=== PATIENT | female | born 1950 | race Caucasian/White ===

== ENCOUNTER 2016-08-12 10:34 | Observation (INO) | payer MEDICARE ==
[2016-08-12] MEDS ORDERED: ASPIRIN 81 MG CHEW PO STA (11:02)
--- NOTE | 2016-08-12 11:02 | ED ---
General Adult HPI - General Chief complaint: Shortness of Breath Stated complaint: chest pain Time Seen by Provider: 08/12/16 10:35 Source: patient, RN notes reviewed Mode of arrival: ambulatory Limitations: no limitations - History of Present Illness Initial comments: This is a 66-year-old female was a past medical history significant for high cholesterol. Patient states approximately one hour ago she started having chest pain center of her chest in the center of her chest and it radiated around to the back. Patient states she became very nauseated when she had the pain. Patient denies any diaphoresis. Patient denies any shortness of breath or difficulty breathing. Patient states it lasted for about half an hour and in route to the hospital the pain went away completely. Patient states she remains chest pain-free. Patient denies any headache patient denies numbness weakness. Patient denies any abdominal pain patient denies nausea vomiting or diarrhea. Patient denies any recent fever chills or cough. Patient denies reproducible pain on palpation. Patient states she has not had this kind of pain in the past. - Related Data Home Medications Medication Instructions Recorded Confirmed Aspirin 81 mg PO DAILY 08/12/16 08/12/16 Atorvastatin Calcium [Lipitor] 10 mg PO DAILY 08/12/16 08/12/16 Levothyroxine Sodium [Synthroid] 100 mcg PO DAILY 08/12/16 08/12/16 Allergies Allergy/AdvReac Type Severity Reaction Status Date / Time No Known Allergies Allergy Verified 08/12/16 12:43 Review of Systems ROS Statement: Those systems with pertinent positive or pertinent negative responses have been documented in the HPI. ROS Other: All systems not noted in ROS Statement are negative. Past Medical History Past Medical History: Cancer, Hyperlipidemia, Thyroid Disorder Additional Past Medical History / Comment(s): Thyroid cancer History of Any Multi-Drug Resistant Organisms: None Reported Past Surgical History: Hysterectomy Additional Past Surgical History / Comment(s): thyroidectomy Past Psychological History: No Psychological Hx Reported Smoking Status: Former smoker Past Alcohol Use History: Rare Past Drug Use History: None Reported General Exam - General Exam Comments Initial Comments: GENERAL: Patient is well-developed and well-nourished. Patient is nontoxic and well- hydrated and is in no acute distress. ENT: Neck is soft and supple. No significant lymphadenopathy is noted. Oropharynx is clear. Moist mucous membranes. Neck has full range of motion without eliciting any pain. EYES: The sclera were anicteric and conjunctiva were pink and moist. Extraocular movements were intact and pupils were equal round and reactive to light. Eyelids were unremarkable. PULMONARY: Unlabored respirations. Good breath sounds bilaterally. No audible rales rhonchi or wheezing was noted. CARDIOVASCULAR: There is a regular rate and rhythm without any murmurs gallops or rubs. ABDOMEN: Soft and nontender with normal bowel sounds. No palpable organomegaly was noted. There is no palpable pulsatile mass. SKIN: Skin is clear with no lesions or rashes and otherwise unremarkable. NEUROLOGIC: Patient is alert and oriented x3. Cranial nerves II through XII are grossly intact. Motor and sensory are also intact. Normal speech, volume and content. Symmetrical smile. MUSCULOSKELETAL: Normal extremities with adequate strength and full range of motion. LYMPHATICS: No significant lymphadenopathy is noted PSYCHIATRIC: Normal psychiatric evaluation. Normal interpersonal interactions appears functionally intact in deals appropriately with others. Mild anxiety Limitations: no limitations Course Vital Signs 08/12/16 08/12/16 08/12/16 10:36 11:13 12:45 Temperature 98.2 F 97.8 F Pulse Rate 92 85 87 Respiratory 18 16 16 Rate Blood Pressure 161/74 164/74 137/69 O2 Sat by Pulse 98 99 92 L Oximetry Medical Decision Making - Medical Decision Making EKG shows normal sinus rhythm at 70 bpm FL interval is 122 Kathy is 76 QTC is 442 QTC is 388. Patient's EKG shows no ST segment elevation or depression or T- wave abdomen is noted. Patient was without symptoms in the emergency department however because of the significance of her symptoms as well as her risk factors the patient appeared to be having unstable angina so I put the patient on heparin. I spoke to Dr. Urmila Kearns agreed to admit the patient I consult to cardiology and continue to heparin Nitropaste and aspirin on the floor. - Lab Data Result diagrams: 08/12/16 10:55 08/12/16 10:55 Lab Results 08/12/16 08/12/16 08/12/16 Range/Units 10:55 10:55 10:55 WBC 7.0 (3.8-10.6) k/uL RBC 4.92 (3.80-5.40) m/uL Hgb 14.2 (11.4-16.0) gm/dL Hct 41.8 (34.0-46.0) % MCV 84.9 (80.0-100.0) fL MCH 28.9 (25.0-35.0) pg MCHC 34.1 (31.0-37.0) g/dL RDW 13.1 (11.5-15.5) % Plt Count 241 (150-450) k/uL Neutrophils % 59 % Lymphocytes % 30 % Monocytes % 5 % Eosinophils % 2 % Basophils % 1 % Neutrophils # 4.1 (1.3-7.7) k/uL Lymphocytes # 2.1 (1.0-4.8) k/uL Monocytes # 0.4 (0-1.0) k/uL Eosinophils # 0.2 (0-0.7) k/uL Basophils # 0.1 (0-0.2) k/uL PT 10.7 (9.0-12.0) sec INR 1.1 (<1.1) APTT 23.1 (22.0-30.0) sec Sodium 142 (137-145) mmol/L Potassium 4.2 (3.5-5.1) mmol/L Chloride 107 (98-107) mmol/L Carbon Dioxide 26 (22-30) mmol/L Anion Gap 9 mmol/L BUN 17 (7-17) mg/dL Creatinine 0.84 (0.52-1.04) mg/dL Est GFR (MDRD) Af Amer >60 (>60 ml/min/1.73 sqM) Est GFR (MDRD) Non-Af >60 (>60 ml/min/1.73 sqM) Glucose 100 H (74-99) mg/dL Calcium 9.2 (8.4-10.2) mg/dL Magnesium 2.1 (1.6-2.3) mg/dL Total Bilirubin 0.8 (0.2-1.3) mg/dL AST 22 (14-36) U/L ALT 32 (9-52) U/L Alkaline Phosphatase 90 (38-126) U/L Total Creatine Kinase (30-135) U/L CK-MB (CK-2) (0.0-2.4) ng/mL CK-MB (CK-2) Rel Index Troponin I (0.000-0.034) ng/mL Total Protein 6.8 (6.3-8.2) g/dL Albumin 4.3 (3.5-5.0) g/dL 08/12/16 Range/Units 10:55 WBC (3.8-10.6) k/uL RBC (3.80-5.40) m/uL Hgb (11.4-16.0) gm/dL Hct (34.0-46.0) % MCV (80.0-100.0) fL MCH (25.0-35.0) pg MCHC (31.0-37.0) g/dL RDW (11.5-15.5) % Plt Count (150-450) k/uL Neutrophils % % Lymphocytes % % Monocytes % % Eosinophils % % Basophils % % Neutrophils # (1.3-7.7) k/uL Lymphocytes # (1.0-4.8) k/uL Monocytes # (0-1.0) k/uL Eosinophils # (0-0.7) k/uL Basophils # (0-0.2) k/uL PT (9.0-12.0) sec INR (<1.1) APTT (22.0-30.0) sec Sodium (137-145) mmol/L Potassium (3.5-5.1) mmol/L Chloride (98-107) mmol/L Carbon Dioxide (22-30) mmol/L Anion Gap mmol/L BUN (7-17) mg/dL Creatinine (0.52-1.04) mg/dL Est GFR (MDRD) Af Amer (>60 ml/min/1.73 sqM) Est GFR (MDRD) Non-Af (>60 ml/min/1.73 sqM) Glucose (74-99) mg/dL Calcium (8.4-10.2) mg/dL Magnesium (1.6-2.3) mg/dL Total Bilirubin (0.2-1.3) mg/dL AST (14-36) U/L ALT (9-52) U/L Alkaline Phosphatase (38-126) U/L Total Creatine Kinase 107 (30-135) U/L CK-MB (CK-2) 0.9 (0.0-2.4) ng/mL CK-MB (CK-2) Rel Index 0.8 Troponin I <0.012 (0.000-0.034) ng/mL Total Protein (6.3-8.2) g/dL Albumin (3.5-5.0) g/dL Critical Care Time Critical Care Time: Yes Total Critical Care Time: 35 Disposition Clinical Impression: Unstable angina Disposition: ADMITTED IP TO THIS HOSP Referrals: Luis Camarena MD [Primary Care Provider] - 1-2 days Time of Disposition: 12:53
[2016-08-12] MEDS ORDERED: NITROGLYCERIN OINT 1 INCH/GM PACKET TOPICAL STA (11:03)
[2016-08-12 11:09] LABS: Basophils # (A) 0.1 k/uL (0-0.2); Basophils % (A) 1 %; CH 28.9; CHCM 34.2; Eosinophils # (A) 0.2 k/uL (0-0.7); Eosinophils % (A) 2 %; HCT 41.8 % (34.0-46.0); HDW 2.46; HGB 14.2 gm/dL (11.4-16.0); Luc # (Auto) 0.18; Luc % (Auto) 3; Lymphocytes # (A) 2.1 k/uL (1.0-4.8); Lymphocytes % (A) 30 %; MCH 28.9 pg (25.0-35.0); MCHC 34.1 g/dL (31.0-37.0); MCV 84.9 fL (80.0-100.0); Mean Platelet Volume 7.1; Monocytes # (A) 0.4 k/uL (0-1.0); Monocytes % (A) 5 %; Neutrophils # (A) 4.1 k/uL (1.3-7.7); Neutrophils % (A) 59 %; RBC 4.92 m/uL (3.80-5.40); RDW 13.1 % (11.5-15.5); WBC (Perox) 6.18
--- NOTE | 2016-08-12 11:11 | XR ---
EXAMINATION TYPE: XR chest 2V DATE OF EXAM: 08/12/2016 11:06 AM COMPARISON: None HISTORY: 66-year-old female with chest pain TECHNIQUE: Frontal and lateral views FINDINGS: The cardiomediastinal silhouette, aorta, and pulmonary vasculature are within normal limits. Strandy atelectasis at the left base. Otherwise, lungs and pleural spaces are clear. IMPRESSION: No acute cardiopulmonary process.
[2016-08-12 11:18] LABS: INR 1.1 (<1.1); Partial Thromboplastin Time 23.1 sec (22.0-30.0); Prothrombin Time 10.7 sec (9.0-12.0)
[2016-08-12 11:51] LABS: Creatine Kinase 107 U/L (30-135)
[2016-08-12 12:04] LABS: Creatine Kinase MB 0.9 ng/mL (0.0-2.4); Troponin I <0.012 ng/mL (0.000-0.034)
[2016-08-12 12:25] LABS: ALT 32 U/L (9-52); AST 22 U/L (14-36); Alkaline Phosphatase 90 U/L (38-126); Anion Gap 9 mmol/L; Blood Urea Nitrogen 17 mg/dL (7-17); Calcium 9.2 mg/dL (8.4-10.2); Carbon Dioxide 26 mmol/L (22-30); Chloride 107 mmol/L (98-107); Glucose 100 mg/dL (74-99); Magnesium 2.1 mg/dL (1.6-2.3); Non-African American GFR(MDRD) >60 (>60 ml/min/1.73 sqM); Potassium 4.2 mmol/L (3.5-5.1); Sodium 142 mmol/L (137-145); Total Bilirubin 0.8 mg/dL (0.2-1.3); Total Protein 6.8 g/dL (6.3-8.2)
[2016-08-12] MEDS ORDERED: HEPARIN SODIUM,PORCINE 5,000 UNIT/ML 1 ML VIAL IV ONE (12:31)
[2016-08-12] MEDS ORDERED: HEPARIN SODIUM,PORCINE/D5W PMX 25,000 UNIT in DEXTROSE/WATER 1 500ML.BAG IV SCH (12:45)
[2016-08-12] MEDS ORDERED: NITROGLYCERIN SL TABS 0.4 MG TAB SUBLINGUAL PRN (12:53)
[2016-08-12 18:01] LABS: Creatine Kinase 134 U/L (30-135)
[2016-08-12 18:14] LABS: Creatine Kinase MB 1.5 ng/mL (0.0-2.4); Troponin I <0.012 ng/mL (0.000-0.034)
[2016-08-12] MEDS: NITROGLYCERIN OINT 1 INCH/GM PACKET TOPICAL SCH (18:28)
[2016-08-12] MEDS ORDERED: ACETAMINOPHEN TAB 325 MG TAB PO PRN (19:25)
[2016-08-12 23:47] LABS: Creatine Kinase 69 U/L (30-135)
[2016-08-13] LABS: Creatine Kinase MB 0.6 ng/mL (0.0-2.4); Troponin I <0.012 ng/mL (0.000-0.034)
[2016-08-13] MEDS: NITROGLYCERIN OINT 1 INCH/GM PACKET TOPICAL SCH ×2 (04:01→06:50)
[2016-08-13] MEDS: LEVOTHYROXINE 100 MCG TAB PO SCH (06:50)
[2016-08-13 07:22] LABS: Cholesterol 191 mg/dL (<200); HDL Cholesterol 57 mg/dL (40-60); Triglycerides 110 mg/dL (<150)
[2016-08-13 08:15] VITALS: RESP 16
[2016-08-13] MEDS: ASPIRIN 325 MG TAB PO SCH (08:35)
[2016-08-13] MEDS ORDERED: ATORVASTATIN 20 MG TAB PO SCH (09:00)
[2016-08-13] MEDS ORDERED: ATORVASTATIN 10 MG TAB PO ONE (09:00)
[2016-08-13] MEDS ORDERED: ASPIRIN 81 MG CHEW PO SCH (09:00)
[2016-08-13] MEDS ORDERED: ATORVASTATIN 10 MG TAB PO SCH (09:00)
--- NOTE | 2016-08-13 09:14 | CONS ---
DATE OF CONSULTATION: Simran Masters is 66-year-old female who started experiencing midsternal chest discomfort that is quite severe and made her nauseous and sweaty and dizzy. The pain radiated to the left scapula. She was quite concerned as it did not let up and she came to the hospital. In the hospital her 12-lead ECG shows normal sinus rhythm with normal cardiac intervals, normal ST segments. Two serial EKGs are normal. Three sets of cardiac enzymes have been normal. She has been pain free here. REVIEW OF SYSTEMS: No fever, chills, rigors. No cough or expectoration. No nausea, vomiting, or diarrhea. No hematuria, dysuria. No strokes or seizure. No skin lesions. No musculoskeletal complaints. ALLERGIES: No known drug allergies. MEDICATIONS: Aspirin, atorvastatin and Synthroid, levothyroxine. Past medical history of dyslipidemia. On examination, her blood pressure is 109/55 mmHg, pulse rate is in the 70s. She is afebrile, 98.6 degrees Fahrenheit. Head and neck examination is normal. Heart sounds are normal. Lungs are clear to auscultation. Extremities are warm. No edema. She has no chest wall tenderness. Labs are reviewed. Cardiac enzymes are normal. Electrolytes are normal. Liver functions are normal. LDL is 112 while on atorvastatin 10 mg a day, HDL 57, total cholesterol 191, triglycerides 110. IMPRESSION: 1. Chest discomfort with radiation to the left scapular area associated with nausea and sweating and dizziness. Normal cardiac enzymes, normal ECG. No evidence for acute myocardial infarction. 2. History of dyslipidemia on atorvastatin. 3. Nonsmoker. SUGGEST: Exercise Cardiolite exercise stress echo tomorrow and if this is normal, she may go home and follow up as an outpatient. I would also increased dose of atorvastatin 20 mg p.o. daily so that her LDL is below 100. Continue aspirin and stop heparin. If her stress test is normal upper abdominal pathology suggest gallbladder disease should be investigated.
[2016-08-13 10:52] LABS: Amylase 47 U/L (30-110)
--- NOTE | 2016-08-13 12:23 | HP ---
DATE OF ADMISSION: CHIEF COMPLAINT: Left chest pain. HISTORY OF PRESENT ILLNESS: This is a 66-year-old female with past medical history significant for hyperlipidemia and thyroid cancer presents to the hospital with left chest pain. Patient denied any heavy lifting. Denied any recent trauma, but said that her right-sided of the chest is tender to touch and to certain movement and that it is radiating all the way to the left shoulder blade and to her back. The patient denied any nausea, vomiting. Denied any exertional dyspnea. Denied any fever or chills or recent upper respiratory infection. Patient said that she had acid reflux disease in the past but never had big trouble with it. Patient is compliant with her medication and doctor's follow-up. Patient is denying tobacco, alcohol or drug abuse. Denied any family history significant for coronary artery disease and currently is pain free this morning. In the emergency troponin negative, EKG normal. Patient was admitted for observation. REVIEW OF SYSTEMS: All 14 systems reviewed and negative except as above. ALLERGIES: No known drug allergies. MEDICATIONS: 1. Aspirin 81 mg daily. 2. Lipitor 10 mg daily. 3. Levothyroxine 100 mcg p.o. daily. PAST MEDICAL AND SURGICAL HISTORY: 1. Thyroid cancer age 28, status post thyroidectomy. 2. Hypothyroidism. 3. Hyperlipidemia. 4. Hysterectomy. SOCIAL HISTORY: The patient quit smoking a long time ago. Denied alcohol or drug abuse. PHYSICAL EXAMINATION: VITAL SIGNS: Reviewed and stable. GENERAL: At her stated age, no acute distress. HEENT: Atraumatic, normocephalic. PERRLA. NECK: Supple, no masses. No thyromegaly. LUNGS: Clear to auscultation bilaterally. HEART: Normal S1, S2. ABDOMEN: Soft, nontender. Bowel sounds positive in all four quadrants. EXTREMITIES: Lower extremity no edema. PSYCH: Alert and oriented x3. NEURO: Cranial nerves II through XII are intact. Normal deep tendon reflexes and sensation. No focal deficit on physical examination. IMAGING AND LABS: EKG showed normal findings. CBC normal. Chem-7 normal. PT, PTT, INR within normal limits. Liver function tests within normal limits. Albumin 4.3, protein within normal limit. Troponin is negative. Chest x-ray showed no acute process. ASSESSMENT AND PLAN: 1. Left-sided chest pain likely musculoskeletal in nature given the patient's age, comorbidities and Dr. Simpson evaluated the patient and recommended stress test in the morning. Patient is agreeable to the current treatment. Plan: We will keep on telemonitor, discontinue heparin drip, discontinue IV at this point and we will continue monitoring her vital signs closely, perform stress test in the morning and consider discharge after stress test as mentioned above. It is most likely musculoskeletal in nature and patient recommend to follow up with her primary care physician after discharge. 2. Hyperlipidemia. We will check on her lipid panel and increase dose from 10 to 20. 3. Hypothyroidism. We will continue with Synthroid. 4. Discharge planning in the morning based on clinical progress.
[2016-08-14] MEDS: LEVOTHYROXINE 100 MCG TAB PO SCH (06:33)
[2016-08-14] MEDS ORDERED: ATORVASTATIN 20 MG TAB PO SCH (09:00)
[2016-08-14] MEDS: ASPIRIN 325 MG TAB PO SCH (10:18)
--- NOTE | 2016-08-14 11:42 | ECHOS ---
DATE OF SERVICE: 08/14/2016 AGE: 66Y SEX: F HT: 62" WT: 167 lbs. Protocol Hermelindo: X Others: Stress Echo Stage: 3 Dur. of Exercise: 6:30 *Heart Rate Blood Pressure *Rest: 83 Rest: 134/72 * *Max. Achieved: 156 Maximum BP: 202/50 85% PMHR: 129 100% PMHR: 152 *METS: 7.6 INDICATIONS: Chest pain. MEDICATIONS: Aspirin, Lipitor, levothyroxine. Simran Masters is a 66-year-old female who came in with epigastric and chest discomfort and cardiac enzymes were normal. She underwent an exercise stress echo. Baseline heart rate 83 beats a minute. Baseline blood pressure 134/72 mmHg. Patient exercised on a Hermelindo protocol for 6 minutes 30 seconds reaching a peak heart rate of 156 beats a minute, mildly hypertensive response to exercise. Peak blood pressure 202/50 mmHg. Baseline 12-lead ECG showed normal sinus rhythm with 0.[address] depression inferolaterally. No symptoms were noted on the stress test. There was [address] depression inferolaterally; however, this was in the setting of baseline ECG abnormalities. The baseline 2-D echo images showed normal LV systolic function without any segmental wall motion abnormalities. At peak exercise there was excellent augmentation of overall LV contractility without development of any wall motion abnormalities. At recovery, regional global LV systolic function remain normal. IMPRESSION: Normal stress echo without evidence for ischemia. Patient has baseline 0.[address] depression abnormalities on ECG. SUGGEST: Work-up for upper abdominal pathology/gallbladder disease.
[2016-08-14 11:55] VITALS: BP 139/60; PULSE 95; TEMP 99.2
--- NOTE | 2016-08-18 16:10 | P.DS ---
Providers Date of admission: 08/12/16 12:53 Expected date of discharge: 08/14/16 Attending physician: Marques Kearns Consults: 08/12/16 12:53 Consult Physician Urgent Consulting Provider: [facility] Consult Reason/Comments: Unstable angina Do you want consulting provider notified?: Yes Primary care physician: Luis Camarena [facility] Course: This is a 66-year-old female patient of Dr. Camarena with past history of hyperlipidemia, thyroid cancer. She presented with left-sided chest pain. She was placed in the observation unit and seen in consultation by Dr. Mcconnell. She underwent stress test that was negative and patient is been cleared for discharge home in stable condition. Discharge diagnoses: 1. Musculoskeletal chest pain 2. Hyperlipidemia 3. Hypothyroidism Impression and plan of care have been directed as dictated by the signing physician. Margot Altamirano nurse practitioner acting as scribe for signing physician. Patient Condition at Discharge: Good Plan - Discharge Summary Discharge Medication List Aspirin 81 mg PO DAILY 08/12/16 [History] Atorvastatin Calcium [Lipitor] 10 mg PO DAILY 08/12/16 [History] Levothyroxine Sodium [Synthroid] 100 mcg PO DAILY 08/12/16 [History] Follow up Appointment(s)/Referral(s): Jose Antonio Simpson MD [STAFF PHYSICIAN] - 2 Weeks (Left message at Dr. Simpson's office with patient's information to follow up with appointment.) Luis Camarena MD [Primary Care Provider] - 1-2 days Ambulatory/Diagnostic Orders: US abdomen limited [RAD.AMB] Location: Determined By Patient Patient Instructions/Handouts: Angina (GEN) Discharge Disposition: HOME SELF-CARE
== END 2016-08-14 12:58 | disposition home or self-care (01) ==
LOC: EC 10:34 → 3SUR 12:53 → 3OBS 17:38
PROVIDERS: ADMIT Internal Medicine; ATTEND Internal Medicine
DX: I20.0 Unstable angina (principal); E78.5 Hyperlipidemia, unspecified; F41.9 Anxiety disorder, unspecified; K21.9 Gastro-esophageal reflux disease without esophagitis; Z85.850 Personal history of malignant neoplasm of thyroid; Z79.82 Long term (current) use of aspirin; Z79.899 Other long term (current) drug therapy; Z87.891 Personal history of nicotine dependence; E89.0 Postprocedural hypothyroidism
CPT/HCPCS: 96376 ×2; 96365 ×2; 99291 ×2; 96366 ×2; 36415; 93005; 93017; 93350; 80061; 80053; 82150; 82550; 82553; 83690; 83735; 84484; 85025; 85610; 85730 ×2; 71020; G0378 ×3; J1644 ×2

== ENCOUNTER → 2016-08-23 | Outpatient (CLI) | payer MEDICARE, BC ==
--- NOTE | 2016-08-23 08:13 | US ---
EXAMINATION TYPE: US abdomen limited DATE OF EXAM: 08/23/2016 COMPARISON: NONE CLINICAL HISTORY: R10.84 Abdominal Pain, K81.9 Cholecystitis. Patient was in hospital for chest pain, no abnormalities found. EXAM MEASUREMENTS: Liver Length: 13.1 cm Gallbladder Wall: 0.2 cm CBD: 0.3 cm Right Kidney: 10.2 x 4.4 x 5.6 cm Pancreas: visualized portions wnl Liver: multiple thin-walled cysts throughout both lobes, largest measuring 2.9 x 2.4 x 3.4 cm, and a round hyperechoic lesion measuring 1.6 x 1.4 x 1.5 cm near dome. Gallbladder: No stones seen Evidence for sonographic Berrios's sign: No CBD: wnl Right Kidney: No hydronephrosis or masses seen IMPRESSION: Nonspecific 1.6 cm round hyperechoic lesion right hepatic lobe favors hemangioma, further investigation with multi phase contrast-enhanced liver protocol CT or MRI is advised. No gallstones or ultrasound evidence for acute cholecystitis.
== END | disposition home or self-care (01) ==
LOC: RADUSWWP 07:21
PROVIDERS: ATTEND Internal Medicine Geriatric Medicine
DX: K76.9 Liver disease, unspecified (principal); R10.84 Generalized abdominal pain
CPT/HCPCS: 76705

== ENCOUNTER → 2016-11-08 | Outpatient (CLI) | payer MEDICARE, BC ==
[2016-11-08 16:44] LABS: Blood Urea Nitrogen 17 mg/dL (7-17); Non-African American GFR(MDRD) >60 (>60 ml/min/1.73 sqM)
--- NOTE | 2016-11-08 17:29 | CT ---
EXAMINATION TYPE: CT abdomen wo/w con DATE OF EXAM: 11/08/2016 COMPARISON: NONE HISTORY: Abnormal US, no complaints at time of scan. CT DLP: 844.80 mGycm Automated exposure control for dose reduction was used. TECHNIQUE: Helical acquisition of images was performed from the lung bases through the top of iliac crest to include entire abdomen. CONTRAST: Performed with Oral Contrast and without and with IV Contrast, patient injected with 100 mL of Omnipa que 300. FINDINGS: There is coarse linear density at the lung bases. There are numerous cysts in the liver that measure up to 3 cm. Bile ducts are not dilated. Gallbladder appears normal. There is a 2 cm area of low attenuation in the posterior right lobe of the liver with peripheral enha ncement on the delayed images consistent with hemangioma. The noncontrast images show no renal stone. Spleen appears normal. There is no sign of pancreatic mas s. There is no adrenal mass. Kidneys show satisfactory contrast opacification. There is no hydronephrosi s. Ureters are not dilated. There is no retroperitoneal adenopathy. I see no intestinal wall thickening. There are no dilated loops. There is no sign of ascites. IMPRESSION: BILATERAL PATCHY SCARRING AND ATELECTASIS AT THE LUNG BASES. NUMEROUS HEPATIC CYSTS. THERE IS A 2 CM AREA OF LOW ATTENUATION WITH SOME PERIPHERAL ENHANCEMENT ON T HE DELAYED IMAGES CONSISTENT WITH HEMANGIOMA POSTERIOR RIGHT LOBE OF THE LIVER.. NO CHANGE COMPARED T O ABDOMEN ULTRASOUND ON 08/23/2016.
== END | disposition home or self-care (01) ==
LOC: RADCTMAIN 15:58
PROVIDERS: ATTEND Internal Medicine Geriatric Medicine
DX: K76.89 Other specified diseases of liver (principal)
CPT/HCPCS: 82565; 84520; 74170; 36415; Q9967

== ENCOUNTER → 2018-02-13 | Outpatient (CLI) | payer MEDICARE ==
[2018-02-13 11:33] LABS: Basophils # (A) 0.1 k/uL (0-0.2); Basophils % (A) 1 %; Eosinophils # (A) 0.2 k/uL (0-0.7); Eosinophils % (A) 2 %; HCT 44.3 % (34.0-46.0); HGB 14.5 gm/dL (11.4-16.0); Lymphocytes % (A) 29 %; MCH 28.4 pg (25.0-35.0); MCHC 32.8 g/dL (31.0-37.0); MCV 86.7 fL (80.0-100.0); Monocytes # (A) 0.3 k/uL (0-1.0); Monocytes % (A) 4 %; Neutrophils # (A) 4.4 k/uL (1.3-7.7); Neutrophils % (A) 63 %; Platelet Count 242 k/uL (150-450); RBC 5.11 m/uL (3.80-5.40); RDW 13.3 % (11.5-15.5); WBC 7.1 k/uL (3.8-10.6)
[2018-02-13 11:45] LABS: Potassium 4.6 mmol/L (3.5-5.1)
== END ==
LOC: LABPAT 10:53
PROVIDERS: ATTEND Orthopaedic Surgery
DX: Z01.818 Encounter for other preprocedural examination (principal); Z01.812 Encounter for preprocedural laboratory examination; M75.41 Impingement syndrome of right shoulder
CPT/HCPCS: 36415; 80051; 85025; 93005

== ENCOUNTER → 2018-02-22 | Day surgery (SDC) | payer MEDICARE ==
[2018-02-18 14:32] VITALS: BMI 30.5
--- NOTE | 2018-02-21 09:49 | HP ---
HISTORY AND PHYSICAL CHIEF COMPLAINT: Right shoulder pain. HISTORY OF PRESENT ILLNESS: The patient is a 67-year-old, right-hand dominant, retired female who presents with right shoulder pain after a fall in December of 2017. She fell down her stairs. She is having pain with attempted overhead use and at night ever since. She has a difficult time raising her arm over her head. She denies previous significant problems. PAST MEDICAL HISTORY: Significant for hypothyroidism and hypercholesterolemia. CURRENT MEDICATIONS: 1. Atorvastatin. 2. Ibuprofen. 3. Synthroid. ALLERGIES: She denies drug allergies. SURGICAL HISTORY: Significant for her partial thyroidectomy and hysterectomy. FAMILY HISTORY: Significant for cancer and lung disease. SOCIAL HISTORY: Negative for current tobacco or alcohol use. REVIEW OF SYSTEMS: Sixteen-point review of systems otherwise reviewed and is noncontributory. PHYSICAL EXAMINATION: On examination, the patient is approximately 5 feet 2 inches, 173 pounds of mesomorphic habitus. HEENT exam is nonfocal. Neck is supple. On examination of her right shoulder, she is tender about the anterior subacromial space. She has mild subacromial crepitus. Active range of motion forward elevation 90 degrees, external rotation with arm to side 55 degrees, internal rotation to L2. Passively I am able to forward elevate her to 155 degrees. Motor strength is 4+ or 5 for external rotation with arm at side, 4/5 for abduction. Impingement test, Neer test and Speed test are positive. Her distal neurovascular exam otherwise appears intact in the right upper extremity. MRI report right shoulder shows evidence of a retracted rotator cuff tear without significant muscular atrophy. IMPRESSION: Right acute rotator cuff tear-symptomatic. RECOMMENDATIONS: I talked to the patient at length regarding her condition and treatment options. At this point, she is quite symptomatic and limited because of pain and weakness. After thorough discussion, she opts to proceed with surgery. We will plan to proceed with right shoulder arthroscopic subacromial decompression with probable rotator cuff repair and possible biceps tenotomy. Risks and benefits were discussed at length in layman's terms. MMODL / IJN: [id number] /
[~2018-02-22] MED LIST: DEXAMETHASONE SOD PHOSPHATE 10 MG/ML 1 ML VIAL IV ONE; EPINEPHrine (PF) 1 ML in SODIUM CHLORIDE 0.9% IRRIGATIO 3,000 ML IRRIGATION ONE; HYDROmorphone 0.5 MG/0.5 ML SYRINGE IVP PRN; KETAMINE 10 MG/ML 20 ML VIAL ONE; LACTATED RINGERS 1,000 ML IV ONE; LACTATED RINGERS 1,000 ML IV SCH; LIDOCAINE 1% 20 ML VIAL (10MG/ML) FOR IV START INTRADERMA ONE; LIDOCAINE 1% INJ 10MG/ML (20 ML MDV) ONE; MIDAZOLAM 2 MG/2 ML VIAL IV ONE; MIDAZOLAM 2 MG/2 ML VIAL ONE; MORPHINE SULFATE 2 MG/ML SYRINGE IV PRN; ONDANSETRON 4 MG/2 ML VIAL IVP ONE; ONDANSETRON 4 MG/2 ML VIAL IVP PRN; PHENYLEPHRINE-0.9% NACL SYG 1 MG/10 ML SYRINGE ONE; PROPOFOL 10 MG/ML 20 ML VIAL IV ONE; ROCURONIUM BROMIDE 10 MG/ML 10 ML VIAL IV ONE; ROPIVACAINE 5 MG/ML 30 ML VIAL ONE; ceFAZolin IN SWFI 2 GM/20 ML SYRINGE IVP ONE
--- NOTE | 2018-02-22 07:34 | P.ONQ ---
Anesthesiology Proc Note - PNB - Peripheral Nerve Block Performed Right Interscalene Time Out Performed: Yes Procedure Start Time: : Procedure Stop Time: : Indication: Acute Post-Operative Pain, Analgesia, Requested by physician Sedation Type: Sedate with meaningful contact maintained Preparation: Sterile Prep Position: Supine Catheter: None Needle Types: On-Q Needle Size: 50mm (2") Needle Gauge: 20 Technique: Ultrasound Injectate: 0.5% Ropivacaine (see comment for volume) (20cc) Blood Aspirated: No Pain Paresthesia on Injection Noted: No
--- NOTE | 2018-02-22 09:44 | P.OP ---
Date of Procedure: 02/22/18 Preoperative Diagnosis: Acute right rotator cuff tear Postoperative Diagnosis: Same in addition to high-grade partial-thickness tear long head of the biceps/ type II superior labral tear Procedure(s) Performed: Right shoulder arthroscopic subacromial decompression/rotator cuff repair/ biceps tenotomy/superior labral debridement Implants: Arthrex 4.75 mm swivel lock anchor 2, 5.5 mm swivel lock anchor 2. Anesthesia: kenzie BROWN Surgeon: Alberto Damon Assistant Refinery Operator #1: Arnol Saldaña Estimated Blood Loss (ml): 10 Pathology: none sent Condition: stable Disposition: PACU Indications for Procedure: The patient's a 67-year-old female who presents with progressive right shoulder pain and weakness after a fall about a month ago. Prior that she didn't have any problems. Clinically and by MRI she is noted of evidence of a large acute rotator cuff tear. A discussion of the risks and benefits of operative intervention versus continued conservative measures was made with the patient. She opted to proceed with surgery. Operative risks to include infection, neurovascular injury, development of blood clots, possible tendon rerupture, possible postoperative stiffness, and possible need for subsequent procedures was discussed. Informed consent was obtained. Operative Findings: As below Description of Procedure: The patient was brought to the operating room, and after induction of general anesthesia was placed in a beachchair position. A preoperative interscalene block was placed for postoperative analgesia. I examined the right shoulder. There was no gross block to passive motion or gross glenohumeral instability. The right upper extremity was prepped and draped in normal fashion. The bony outlines the acromion, distal clavicle, and coracoid process were outlined with a skin marker. The glenohumeral joint was inflated with 50 mL of saline utilizing a spinal needle from posterior approach. A posterior portal was made through a 5 mm skin incision 1 cm medial and inferior to the posterior lateral border time. A blunt trocar was used to easily into the joint. Diagnostic arthroscopy was performed. An anterior portal was made just lateral to the coracoid process entering the joint above the subscapularis tendon. The subscapularis tendon appeared to be intact. Anterior labrum was intact. The inferior recess was inspected. The posterior labrum was intact. There was a high-grade partial-thickness tear of the long head of the biceps involving interarticular portion. Was elected to proceed with release at this point. This was released from the superior labrum with electrocautery along with 2 to retract to the bicipital groove. A type II tear involving the superior labrum was noted as well this was debrided back to a stable base with a motorized shaver. On inspection the rotator cuff, a 5 cm tear involving the supraspinatus and supraspinatus tendons noted with retraction almost to the glenoid. A lateral portals made 2 centimeters inferior to the anterior lateral border of the acromion. The rotator cuff was then mobilized with a traction suture. This was then easily brought back to the greater tuberosity. The soft tissue on the undersurface of the acromion was debrided with a motorized shaver and electrocautery clearly defining the anterior medial and lateral borders as well as the distal clavicle. An anterior inferior acromioplasty was performed with a motorized meena starting anterolateral, then extending this posteriorly, then extending this medially. I converted to a flat acromion and this was verified in the posterior and lateral viewing portals. The greater tuberosity was lightly decorticating with a shaver down to a bleeding bony surface. An accessory superior lateral portals made just off the lateral edge of the acromion for anchor placement. 2 anchors were then placed just off the articular surface with the appropriate starting awl. 4.75 mm anchors preloaded with #2 fiber tape were placed. Good purchase was obtained. These fiber tapes were then passed the rotator cuff with a scorpion suture passer. A lateral row was created crisscrossing these tapes. 5.5 mm swivel lock anchors 2 were placed laterally. Good purchase was obtained. Final arthroscopic view showed adequate compression at the footprint. The arthroscope was then removed. The portals were closed with simple 3-0 nylon sutures. A sterile dressing was applied in addition to an abductor brace. The patient was then awoken from general anesthesia and transferred to recovery room in good condition. Blood loss was estimated at 10 mL. No complications were incurred. Sponge and needle counts were correct in the case.
[2018-02-22 09:46] VITALS: TEMP 97
[2018-02-22 10:33] VITALS: PULSE 67
[2018-02-22 10:53] VITALS: BP 112/67; RESP 16
== END | disposition home or self-care (01) ==
LOC: OR 06:00
PROVIDERS: ATTEND Orthopaedic Surgery
DX: S46.011A Strain of muscle(s) and tendon(s) of the rotator cuff of right shoulder, initial encounter (principal); S46.111A Strain of muscle, fascia and tendon of long head of biceps, right arm, initial encounter; S43.491A Other sprain of right shoulder joint, initial encounter; W10.9XXA Fall (on) (from) unspecified stairs and steps, initial encounter; M24.811 Other specific joint derangements of right shoulder, not elsewhere classified; E89.0 Postprocedural hypothyroidism; E78.00 Pure hypercholesterolemia, unspecified; E78.5 Hyperlipidemia, unspecified; M65.30 Trigger finger, unspecified finger; D50.9 Iron deficiency anemia, unspecified; M81.0 Age-related osteoporosis without current pathological fracture; I73.00 Raynaud's syndrome without gangrene; M54.5 Low back pain; M10.9 Gout, unspecified; M16.10 Unilateral primary osteoarthritis, unspecified hip; G25.81 Restless legs syndrome; R00.2 Palpitations; Z85.850 Personal history of malignant neoplasm of thyroid; Z85.820 Personal history of malignant melanoma of skin; Z87.891 Personal history of nicotine dependence; Z79.82 Long term (current) use of aspirin; Z79.890 Hormone replacement therapy; Z79.899 Other long term (current) drug therapy; Z79.1 Long term (current) use of non-steroidal anti-inflammatories (NSAID); Z88.6 Allergy status to analgesic agent; Z88.5 Allergy status to narcotic agent; Z90.710 Acquired absence of both cervix and uterus
CPT/HCPCS: 64415; 29827; 29826; C1713 ×2; C1894; J2250; J1100; J2405; J0171; J2001; J2795; J2370; J2704; J0690

== ENCOUNTER → 2018-09-03 | Outpatient (CLI) | payer MEDICARE ==
[2018-09-04 01:16] LABS: Thyroglobulin <0.20 ng/mL (1.60-59.90)
== END | disposition home or self-care (01) ==
LOC: LABWHC1 14:42
PROVIDERS: ATTEND Internal Medicine Endocrinology, Diabetes & Metabolism
DX: C73 Malignant neoplasm of thyroid gland (principal)
CPT/HCPCS: 36415; 84432; 84443; 86800

== ENCOUNTER → 2019-03-13 | Outpatient (CLI) | payer MEDICARE | END | disposition home or self-care (01) | LOC: LABWHC1 10:05 | PROVIDERS: ATTEND Internal Medicine Endocrinology, Diabetes & Metabolism | DX: C73 Malignant neoplasm of thyroid gland (principal) | CPT/HCPCS: 36415; 84432; 84443; 86800 ==

== ENCOUNTER → 2019-03-31 | Outpatient (CLI) | payer MEDICARE ==
--- NOTE | 2019-03-31 13:53 | US ---
EXAMINATION TYPE: US thyroid st tissue head/neck DATE OF EXAM: 03/31/2019 COMPARISON: NONE CLINICAL HISTORY: C73 MALIGNANT NEOPLASM OF THYROID GLAND. Thyroidectomy 40 years ago, patient on thy roid meds GLAND SIZE: Right Lobe: surgically absent Left Lobe: surgically absent Isthmus Thickness: surgically absent Bilateral neck scanned, no evidence of lymphadenopathy. IMPRESSION: Status post thyroidectomy. No local adenopathy or focal nodule.
== END | disposition home or self-care (01) ==
LOC: RADUSWWP 13:27
PROVIDERS: ATTEND Internal Medicine Endocrinology, Diabetes & Metabolism
DX: E89.0 Postprocedural hypothyroidism (principal)
CPT/HCPCS: 76536

== ENCOUNTER → 2019-09-12 | Outpatient (CLI) | payer MEDICARE ==
--- NOTE | 2019-09-12 15:34 | CT ---
EXAMINATION TYPE: CT angio chest DATE OF EXAM: 09/12/2019 COMPARISON: None HISTORY: Difficulty breathing CT DLP: 501 mGycm CONTRAST: CT chest with contrast and 3D reconstruction with MIP imaging is performed with IV Contrast, patient injected with 100 mL of Isovue 370. Contrast-enhanced CT of the chest was performed through the course of the pulmonary arteries with dedrick g and mediastinal window settings submitted. 3D reconstruction with MIP imaging was also performed. PULMONARY ARTERIES: The pulmonary arteries and their major tributaries are patent. I do not see sammy dence for sizable filling defect to suggest pulmonary embolic process. LUNGS: The lungs are clear and free of infiltrate. No evidence for atelectasis. No pulmonary nodule or mass is detected. No pleural effusion. MEDIASTINUM: Thoracic aorta is of normal caliber,however, evaluation is limited given timing of the contrast bolus. If there is concern for thoracic aortic pathology consider CHRISTIAN. Correlate clinicall y . The heart is not enlarged. No evidence for mediastinal mass. No mediastinal lymph nodes greater than 1cm. HILAR STRUCTURES: No evidence for mass. No hilar lymph nodes greater than 1 cm. UPPER ABDOMEN: Multiple hepatic cysts noted. IMPRESSION: 1. No evidence for Pulmonary embolism at this time.
== END | disposition home or self-care (01) ==
LOC: RADCTMAIN 14:45
PROVIDERS: ATTEND Nurse Practitioner Family
DX: R06.02 Shortness of breath (principal)
CPT/HCPCS: 71275; Q9967

== ENCOUNTER 2020-02-24 06:00 | Emergency (ER) | payer MEDICARE ==
[2020-02-24 06:07] VITALS: RESP 18
[2020-02-24] MEDS ORDERED: SODIUM CHLORIDE 0.9% 500 ML 500 ML IV STA (06:12)
[2020-02-24] MEDS ORDERED: HYDROmorphone 0.5 MG/0.5 ML SYRINGE IVP STA (06:12)
[2020-02-24] MEDS ORDERED: SODIUM CHLORIDE 0.9% 1,000 ML IV STA (06:12)
[2020-02-24] MEDS ORDERED: ONDANSETRON 4 MG/2 ML VIAL IVP STA (06:12)
--- NOTE | 2020-02-24 06:24 | ED ---
Abdominal Pain HPI - General Chief Complaint: Abdominal Pain Stated Complaint: abd pain Time Seen by Provider: 02/24/20 06:08 Source: patient, RN notes reviewed Mode of arrival: ambulatory Limitations: no limitations - History of Present Illness Initial Comments: 69-year-old female presents emergency Department with chief complaint of left- sided abdominal pain. Patient states pain started around 2 AM and which this woke her up. Patient has severe pain to the left side of her abdomen, left flank region. She has no history kidney stones. She's had a prior hysterectomy no other abdominal surgeries. Patient denies chest pain, shortness breath, fev er, diarrhea, melena, hematochezia, hematuria or dysuria. Patient states nothing makes the pain feel better or worse. Patient's had severe nausea and vomiting. - Related Data Home Medications Medication Instructions Recorded Confirmed Aspirin 81 mg PO DAILY 08/12/16 02/24/20 Levothyroxine Sodium [Synthroid] 100 mcg PO DAILY 08/12/16 02/24/20 Acetaminophen [Tylenol Extra 500 - 1,000 mg PO Q4-6H PRN 02/18/18 02/24/20 Strength] Albuterol Inhaler [Ventolin Hfa 2 puff INHALATION RT-QID 02/24/20 02/24/20 Inhaler] Atorvastatin Calcium [Lipitor] 20 mg PO DAILY 02/24/20 02/24/20 Ergocalciferol (Vitamin D2) 50,000 unit PO Q30D 02/24/20 02/24/20 [Drisdol] Turmeric Root Extract [Turmeric] 500 mg PO DAILY 02/24/20 02/24/20 Previous Rx's Medication Instructions Recorded Ibuprofen [Motrin] 600 mg PO Q8HR PRN #20 tab 02/24/20 Ondansetron Odt [Zofran Odt] 4 mg PO Q8HR PRN #10 tab 02/24/20 Tamsulosin [Flomax] 0.4 mg PO DAILY #7 cap 02/24/20 Allergies Allergy/AdvReac Type Severity Reaction Status Date / Time meperidine [From Demerol] Allergy Nausea & Verified 02/24/20 07:19 Vomiting Review of Systems ROS Statement: Those systems with pertinent positive or pertinent negative responses have been documented in the HPI. ROS Other: All systems not noted in ROS Statement are negative. Past Medical History Past Medical History: Cancer, Chest Pain / Angina, Hyperlipidemia, Musculoskeletal Disorder, Thyroid Disorder Additional Past Medical History / Comment(s): Thyroid cancer. SL OA FINGER. RT SHOULDER ROTATOR CUFF TEAR. CP 2017, W/U NL. History of Any Multi-Drug Resistant Organisms: None Reported Past Surgical History: Breast Surgery, Hysterectomy, Orthopedic Surgery, Tonsillectomy Additional Past Surgical History / Comment(s): Thyroidectomy, RLL fracture with plates/screws. LT BREAST BIOPSY. Past Anesthesia/Blood Transfusion Reactions: Previous Problems w/ Anesthesia Additional Past Anesthesia/Blood Transfusion Reaction / Comment(s): WOKE DURING SURG, STOPPED BREATHING AFTER (BIOPSY LT BREAST). Past Psychological History: No Psychological Hx Reported Smoking Status: Former smoker Past Alcohol Use History: Rare Past Drug Use History: None Reported - Past Family History Mother Family Medical History: Cancer Brother(s) Family Medical History: Cancer General Exam Limitations: no limitations General appearance: alert, in no apparent distress, other (Patient actually having emesis, very uncomfortable) Head exam: Present: atraumatic, normocephalic, normal inspection Eye exam: Present: normal appearance, PERRL, EOMI. Absent: scleral icterus, conjunctival injection, periorbital swelling ENT exam: Present: normal exam, normal oropharynx, mucous membranes moist Neck exam: Present: normal inspection, full ROM. Absent: tenderness, meningismus, lymphadenopathy Respiratory exam: Present: normal lung sounds bilaterally. Absent: respiratory distress, wheezes, rales, rhonchi, stridor Cardiovascular Exam: Present: regular rate, normal rhythm, normal heart sounds. Absent: systolic murmur, diastolic murmur, rubs, gallop, clicks GI/Abdominal exam: Present: soft, tenderness (Moderate left-sided), normal bowel sounds. Absent: distended, guarding, rebound, rigid Back exam: Absent: CVA tenderness (R), CVA tenderness (L) Neurological exam: Present: alert, oriented X3 Skin exam: Present: warm, dry, intact, normal color. Absent: rash Course Vital Signs 02/24/20 02/24/20 06:04 07:16 Temperature 98.1 F Pulse Rate 62 75 Respiratory 18 18 Rate Blood Pressure 111/62 109/44 O2 Sat by Pulse 100 99 Oximetry - Reevaluation(s) Reevaluation #1: 02/24/20 07:32 Patient reevaluated, patient is resting comfortably, states pain has resolved. Patient stated on CT results 4 millimeter ureteral calculi Medical Decision Making - Medical Decision Making 69-year-old female presented for left flank pain patient CT shows evidence of 4 mm UVJ stone. Patient's pain is greatly improved she has no recurrent of emesis. She was hydrated, will be discharged with Flomax and Zofran Zofran and Tylenol with codeine patient will given provided follow-up with urology - Lab Data Result diagrams: 02/24/20 06:21 02/24/20 06:21 Lab Results 02/24/20 02/24/20 02/24/20 Range/Units 06:21 06:21 06:21 WBC 12.1 H (3.8-10.6) k/uL RBC 4.89 (3.80-5.40) m/uL Hgb 13.7 (11.4-16.0) gm/dL Hct 41.5 (34.0-46.0) % MCV 84.8 (80.0-100.0) fL MCH 27.9 (25.0-35.0) pg MCHC 33.0 (31.0-37.0) g/dL RDW 13.2 (11.5-15.5) % Plt Count 269 (150-450) k/uL MPV 7.5 Neutrophils % 79 % Lymphocytes % 16 % Monocytes % 3 % Eosinophils % 0 % Basophils % 0 % Neutrophils # 9.5 H (1.3-7.7) k/uL Lymphocytes # 2.0 (1.0-4.8) k/uL Monocytes # 0.4 (0-1.0) k/uL Eosinophils # 0.1 (0-0.7) k/uL Basophils # 0.1 (0-0.2) k/uL Sodium 138 (137-145) mmol/L Potassium 3.9 (3.5-5.1) mmol/L Chloride 107 (98-107) mmol/L Carbon Dioxide 26 (22-30) mmol/L Anion Gap 5 mmol/L BUN 17 (7-17) mg/dL Creatinine 0.78 (0.52-1.04) mg/dL Est GFR (CKD-EPI)AfAm 89 (>60 ml/min/1.73 sqM) Est GFR (CKD-EPI)NonAf 77 (>60 ml/min/1.73 sqM) Glucose 172 H (74-99) mg/dL Plasma Lactic Acid Adria 1.8 (0.7-2.0) mmol/L Calcium 9.0 (8.4-10.2) mg/dL Total Bilirubin 0.6 (0.2-1.3) mg/dL AST 20 (14-36) U/L ALT 17 (4-34) U/L Alkaline Phosphatase 97 (38-126) U/L Total Protein 6.3 (6.3-8.2) g/dL Albumin 3.9 (3.5-5.0) g/dL Amylase 38 (30-110) U/L Lipase 53 (23-300) U/L - EKG Data -: EKG Interpreted by Me EKG Comments: EKG performed at 6:15 sinus bradycardia rate of 53 CO 146/74 QT/QTC 470 441 Disposition Clinical Impression: Left ureteral calculus Disposition: HOME SELF-CARE Condition: Stable Instructions (If sedation given, give patient instructions): Kidney Stones (ED) Additional Instructions: Please return to the Emergency Department if symptoms worsen or any other concerns. Prescriptions: Tamsulosin [Flomax] 0.4 mg PO DAILY #7 cap Ibuprofen [Motrin] 600 mg PO Q8HR PRN #20 tab PRN Reason: Pain Ondansetron Odt [Zofran Odt] 4 mg PO Q8HR PRN #10 tab PRN Reason: Nausea Is patient prescribed a controlled substance at d/c from ED?: No Referrals: Luis Camarena MD [Primary Care Provider] - 1-2 days Julito Marshall MD [STAFF PHYSICIAN] - 1-2 days Time of Disposition: 07:34
[2020-02-24 06:38] LABS: Basophils # (A) 0.1 k/uL (0-0.2); Basophils % (A) 0 %; Eosinophils # (A) 0.1 k/uL (0-0.7); Eosinophils % (A) 0 %; HCT 41.5 % (34.0-46.0); HGB 13.7 gm/dL (11.4-16.0); Lymphocytes % (A) 16 %; MCH 27.9 pg (25.0-35.0); MCV 84.8 fL (80.0-100.0); Mean Platelet Volume 7.5; Monocytes # (A) 0.4 k/uL (0-1.0); Monocytes % (A) 3 %; Neutrophils # (A) 9.5 k/uL (1.3-7.7); Neutrophils % (A) 79 %; Platelet Count 269 k/uL (150-450); RBC 4.89 m/uL (3.80-5.40); RDW 13.2 % (11.5-15.5); WBC 12.1 k/uL (3.8-10.6)
[2020-02-24 06:46] LABS: Albumin 3.9 g/dL (3.5-5.0); Potassium 3.9 mmol/L (3.5-5.1); Total Bilirubin 0.6 mg/dL (0.2-1.3); Total Protein 6.3 g/dL (6.3-8.2)
--- NOTE | 2020-02-24 07:07 | CT ---
EXAMINATION TYPE: CT abdomen pelvis wo con DATE OF EXAM: 02/24/2020 HISTORY: Abd pain left-sided. CT DLP: 681.3 mGycm. Automated Exposure Control for Dose Reduction was Utilized. TECHNIQUE: CT scan of the abdomen and pelvis is performed without oral or IV contrast. COMPARISON: Prior CT November 08, 2016 FINDINGS: Within the limitations of a non-contrast study, the following observations are made. LUNG BASES: [id number] bibasilar linear scarring and/or atelectasis LIVER/GB: Scattered simple-appearing thin-walled cysts and subcentimeter lesions presumed benign thro ughout the liver are redemonstrated. PANCREAS: No significant abnormality is seen. SPLEEN: No significant abnormality is seen. ADRENALS: No significant abnormality is seen. KIDNEYS: There is a 4 mm calculus at left UVJ causing mild left-sided hydronephrosis on current study . No right-sided renal calculus or hydronephrosis. Poorly distended bladder. BOWEL: Sigmoid colonic diverticula are present without evidence for diverticulitis.. No suspicious sm all or large bowel dilatation. GENITAL ORGANS: Uterus surgically absent or markedly atrophic. LYMPH NODES: No greater than 1cm abdominal or pelvic lymph nodes are appreciated. OSSEOUS STRUCTURES: Spine is straightened on sagittal images. [id number] multilevel spurring an d disc space narrowing. OTHER: No significant additional abnormality is seen. IMPRESSION: There is 4 mm calculus at left UVJ causing mild left-sided hydronephrosis.
[2020-02-24] MEDS ORDERED: TAMSULOSIN 0.4 MG CAP.ER.24H PO STA (07:32)
[2020-02-24] MEDS ORDERED: ACET/COD 300 MG/30 MG STARTER PACK 6 TAB BTL PO STA (07:34)
[2020-02-24 08:00] LABS: Appearance,Urine Cloudy (Clear); Bilirubin,Urine Negative (Negative); Blood,Urine Large (Negative); Color,Urine Yellow; Glucose,Urine (UA) Negative (Negative); Ketones,Urine Trace (Negative); Leukocyte Esterase,Urine Small (Negative); Mucus,Urine Many /hpf; Nitrite,Urine Negative (Negative); PH, Urine 5.5 (5.0-8.0); Protein,Urine 1+ (Negative); RBC,Urine 164 /hpf (0-5); Specific Gravity,Urine 1.035 (1.001-1.035); Squamous Epithelial Cell,Urine 1 /hpf (0-4); Urobilinogen,Urine <2.0 mg/dL (<2.0); WBC,Urine 4 /hpf (0-5)
[2020-02-24 08:01] VITALS: BP 103/53; PULSE 85; TEMP 97.7
== END 2020-02-24 08:05 | disposition home or self-care (01) ==
LOC: EC 06:00
DX: N20.1 Calculus of ureter (principal); E07.9 Disorder of thyroid, unspecified; M19.049 Primary osteoarthritis, unspecified hand; I20.9 Angina pectoris, unspecified; E78.5 Hyperlipidemia, unspecified; Z79.899 Other long term (current) drug therapy; Z79.82 Long term (current) use of aspirin; Z79.890 Hormone replacement therapy; Z88.5 Allergy status to narcotic agent; Z87.891 Personal history of nicotine dependence; Z90.710 Acquired absence of both cervix and uterus; Z85.850 Personal history of malignant neoplasm of thyroid
CPT/HCPCS: 36415; 93005; 80053; 82150; 83605; 83690; 85025; 81001; 74176; 99284; 96374; 96375; 96361 ×3; J2405; J1170

== ENCOUNTER 2020-03-09 14:22 | Emergency (ER) | payer MEDICARE ==
[2020-03-09 14:27] VITALS: TEMP 99.1
[2020-03-09 14:42] VITALS: RESP 18
--- NOTE | 2020-03-09 14:44 | ED ---
SOB HPI - General Chief Complaint: Shortness of Breath Stated Complaint: Revisit,SOB,No taste Time Seen by Provider: 03/09/20 14:42 Source: patient Mode of arrival: ambulatory Limitations: no limitations - History of Present Illness Initial Comments: 69-year-old female presents emergency Department with a chief complaint of shortness of breath and loss of taste. Patient states her tested positive about one week ago and she has been around him. Patient states she has also been feeling weak and generalized fatigue for the past one week. Patient reports decreased appetite. Patient reports decreased appetite and intake of fluids. Patient states she has lost her sense of smell and taste and now does not want to eat much. Patient denies any cough but does report some dyspnea on exertion. States that she contacted her physics technician Dr. Chapman and spoke with the nurse who advised to come to the emergency department for evaluation and IV fluids. Patient states there is some chills but no fevers. Denies any nausea vomiting diarrhea. Denies any chest pain abdominal pain back pain. - Related Data Home Medications Medication Instructions Recorded Confirmed Aspirin 81 mg PO DAILY 08/12/16 03/09/20 Levothyroxine Sodium [Synthroid] 100 mcg PO DAILY 08/12/16 03/09/20 Acetaminophen [Tylenol Extra 500 - 1,000 mg PO Q4-6H PRN 02/18/18 03/09/20 Strength] Albuterol Inhaler [Ventolin Hfa 2 puff INHALATION RT-QID 02/24/20 03/09/20 Inhaler] Atorvastatin Calcium [Lipitor] 20 mg PO DAILY 02/24/20 03/09/20 Ergocalciferol (Vitamin D2) 50,000 unit PO Q30D 02/24/20 03/09/20 [Drisdol] Turmeric Root Extract [Turmeric] 500 mg PO DAILY 02/24/20 03/09/20 Ascorbic Acid [Vitamin C] 500 mg PO DAILY 03/09/20 03/09/20 Cholecalciferol [Vitamin D3 (25 1,000 unit PO DAILY 03/09/20 03/09/20 Mcg = 1000 Iu)] Previous Rx's Medication Instructions Recorded Ibuprofen [Motrin] 600 mg PO Q8HR PRN #20 tab 02/24/20 Ondansetron Odt [Zofran Odt] 4 mg PO Q8HR PRN #10 tab 02/24/20 Tamsulosin [Flomax] 0.4 mg PO DAILY #7 cap 02/24/20 Albuterol Sulfate [Ventolin HFA] 1 - 2 puff INHALATION Q6H PRN #1 03/09/20 inhaler predniSONE 20 mg PO DAILY #5 tab 03/09/20 Allergies Allergy/AdvReac Type Severity Reaction Status Date / Time No Known Allergies Allergy Verified 03/09/20 15:44 Review of Systems ROS Statement: Those systems with pertinent positive or pertinent negative responses have been documented in the HPI. ROS Other: All systems not noted in ROS Statement are negative. Past Medical History Past Medical History: Cancer, Chest Pain / Angina, Hyperlipidemia, Musculoskeletal Disorder, Thyroid Disorder Additional Past Medical History / Comment(s): Thyroid cancer. SL OA FINGER. RT SHOULDER ROTATOR CUFF TEAR. CP 2017, W/U NL. History of Any Multi-Drug Resistant Organisms: None Reported Past Surgical History: Breast Surgery, Hysterectomy, Orthopedic Surgery, Tonsillectomy Additional Past Surgical History / Comment(s): Thyroidectomy, RLL fracture with plates/screws. LT BREAST BIOPSY. right shoulder surgery 2018 Past Anesthesia/Blood Transfusion Reactions: Previous Problems w/ Anesthesia Additional Past Anesthesia/Blood Transfusion Reaction / Comment(s): WOKE DURING SURG, STOPPED BREATHING AFTER (BIOPSY LT BREAST). Past Psychological History: No Psychological Hx Reported Smoking Status: Former smoker Past Alcohol Use History: Rare Past Drug Use History: None Reported - Past Family History Mother Family Medical History: Cancer Brother(s) Family Medical History: Cancer General Exam Limitations: no limitations General appearance: alert, in no apparent distress Head exam: Present: atraumatic, normocephalic, normal inspection Eye exam: Present: normal appearance, PERRL, EOMI Pupils: Present: normal accommodation ENT exam: Present: normal exam, normal oropharynx, mucous membranes dry, TM's normal bilaterally, normal external ear exam Neck exam: Present: normal inspection, full ROM. Absent: tenderness, lymphadenopathy Respiratory exam: Present: normal lung sounds bilaterally. Absent: respiratory distress, wheezes, rales, rhonchi, stridor Cardiovascular Exam: Present: regular rate, normal rhythm, normal heart sounds. Absent: systolic murmur, diastolic murmur GI/Abdominal exam: Present: soft. Absent: distended, tenderness, guarding, rebound Extremities exam: Present: normal inspection, full ROM, normal capillary refill. Absent: tenderness, pedal edema, joint swelling, calf tenderness Back exam: Present: normal inspection, full ROM. Absent: tenderness, CVA tenderness (R), CVA tenderness (L) Neurological exam: Present: alert, oriented X3, normal gait Psychiatric exam: Present: normal affect, normal mood Skin exam: Present: warm, dry, intact, normal color Course Vital Signs 03/09/20 03/09/20 03/09/20 14:24 14:40 15:50 Temperature 99.1 F Pulse Rate 119 H 66 Respiratory 23 18 18 Rate Blood Pressure 141/76 144/84 O2 Sat by Pulse 96 97 Oximetry 03/09/20 03/09/20 16:54 17:02 Temperature 99.1 F Pulse Rate 66 Respiratory 18 Rate Blood Pressure 137/87 O2 Sat by Pulse 94 L 94 L Oximetry Medical Decision Making - Medical Decision Making 69-year-old female presenting to the emergency department chief complain of shortness of breath. On physical examination, patient denies any respiratory distress. She has oxygen saturation of 96% on room air. CBC reveals mild leukopenia of 3.6. CMP unremarkable. Slight elevation in LDH and CRP. Chest x-ray is unremarkable. Coags within normal limits. D-dimer is slightly elevated at 0.64. Patient is c covid-19d positive. Patient was given 1.5 L of IV fluids. On reevaluation, patient reports improvement in her symptoms. Her biggest concern was the decreased appetite and not drinking any fluids. Ambulatory O2 is 94. Patient was given albuterol inhaler and a 5 day course of prednisone. Patient was advised to quarantine for 10 days after the onset of symptoms. Strict return parameters were thoroughly discussed the patient was understanding and agreeable. Case discussed with who is agreeable to treatment plan. - Lab Data Result diagrams: 03/09/20 15:05 03/09/20 15:05 Lab Results 03/09/20 03/09/20 03/09/20 Range/Units 15:05 15:05 15:05 WBC 3.6 L (3.8-10.6) k/uL RBC 5.32 (3.80-5.40) m/uL Hgb 14.8 (11.4-16.0) gm/dL Hct 43.9 (34.0-46.0) % MCV 82.6 (80.0-100.0) fL MCH 27.8 (25.0-35.0) pg MCHC 33.7 (31.0-37.0) g/dL RDW 12.7 (11.5-15.5) % Plt Count 173 (150-450) k/uL MPV 7.6 Neutrophils % 60 % Lymphocytes % 29 % Monocytes % 6 % Eosinophils % 1 % Basophils % 2 % Neutrophils # 2.2 (1.3-7.7) k/uL Lymphocytes # 1.0 (1.0-4.8) k/uL Monocytes # 0.2 (0-1.0) k/uL Eosinophils # 0.0 (0-0.7) k/uL Basophils # 0.1 (0-0.2) k/uL PT 10.4 (9.0-12.0) sec INR 1.0 (<1.2) APTT 25.3 (22.0-30.0) sec D-Dimer 0.64 H (<0.60) mg/L FEU Sodium 136 L (137-145) mmol/L Potassium 4.1 (3.5-5.1) mmol/L Chloride 100 (98-107) mmol/L Carbon Dioxide 24 (22-30) mmol/L Anion Gap 12 mmol/L BUN 20 H (7-17) mg/dL Creatinine 0.76 (0.52-1.04) mg/dL Est GFR (CKD-EPI)AfAm >90 (>60 ml/min/1.73 sqM) Est GFR (CKD-EPI)NonAf 80 (>60 ml/min/1.73 sqM) Glucose 103 H (74-99) mg/dL Plasma Lactic Acid Adria (0.7-2.0) mmol/L Calcium 8.6 (8.4-10.2) mg/dL Magnesium 2.0 (1.6-2.3) mg/dL Total Bilirubin 0.9 (0.2-1.3) mg/dL AST 35 (14-36) U/L ALT 20 (4-34) U/L Alkaline Phosphatase 90 (38-126) U/L Lactate Dehydrogenase 844 H (313-618) U/L C-Reactive Protein 11.5 H (<10.0) mg/L Total Protein 6.9 (6.3-8.2) g/dL Albumin 4.2 (3.5-5.0) g/dL Coronavirus (PCR) (Not Detectd) 03/09/20 03/09/20 Range/Units 15:05 15:05 WBC (3.8-10.6) k/uL RBC (3.80-5.40) m/uL Hgb (11.4-16.0) gm/dL Hct (34.0-46.0) % MCV (80.0-100.0) fL MCH (25.0-35.0) pg MCHC (31.0-37.0) g/dL RDW (11.5-15.5) % Plt Count (150-450) k/uL MPV Neutrophils % % Lymphocytes % % Monocytes % % Eosinophils % % Basophils % % Neutrophils # (1.3-7.7) k/uL Lymphocytes # (1.0-4.8) k/uL Monocytes # (0-1.0) k/uL Eosinophils # (0-0.7) k/uL Basophils # (0-0.2) k/uL PT (9.0-12.0) sec INR (<1.2) APTT (22.0-30.0) sec D-Dimer (<0.60) mg/L FEU Sodium (137-145) mmol/L Potassium (3.5-5.1) mmol/L Chloride (98-107) mmol/L Carbon Dioxide (22-30) mmol/L Anion Gap mmol/L BUN (7-17) mg/dL Creatinine (0.52-1.04) mg/dL Est GFR (CKD-EPI)AfAm (>60 ml/min/1.73 sqM) Est GFR (CKD-EPI)NonAf (>60 ml/min/1.73 sqM) Glucose (74-99) mg/dL Plasma Lactic Acid Adria 1.2 (0.7-2.0) mmol/L Calcium (8.4-10.2) mg/dL Magnesium (1.6-2.3) mg/dL Total Bilirubin (0.2-1.3) mg/dL AST (14-36) U/L ALT (4-34) U/L Alkaline Phosphatase (38-126) U/L Lactate Dehydrogenase (313-618) U/L C-Reactive Protein (<10.0) mg/L Total Protein (6.3-8.2) g/dL Albumin (3.5-5.0) g/dL Coronavirus (PCR) Detected A (Not Detectd) Disposition Clinical Impression: COVID-19 Disposition: HOME SELF-CARE Condition: Stable Instructions (If sedation given, give patient instructions): Chronic Cough (ED) Additional Instructions: Take prescribed medication as directed. Quarantine for 10 days after the onset of symptoms. Return to emergency department if symptoms worsen. Prescriptions: predniSONE 20 mg PO DAILY #5 tab Albuterol Sulfate [Ventolin HFA] 1 - 2 puff INHALATION Q6H PRN #1 inhaler PRN Reason: Wheezing Is patient prescribed a controlled substance at d/c from ED?: No Referrals: Luis Camarena MD [Primary Care Provider] - 1-2 days Time of Disposition: 17:00
[2020-03-09] MEDS ORDERED: SODIUM CHLORIDE 0.9% 1,000 ML IV STA (14:54)
[2020-03-09] MEDS ORDERED: SODIUM CHLORIDE 0.9% 500 ML 500 ML IV STA (14:54)
[2020-03-09 15:26] LABS: Basophils # (A) 0.1 k/uL (0-0.2); Basophils % (A) 2 %; Eosinophils % (A) 1 %; HCT 43.9 % (34.0-46.0); HGB 14.8 gm/dL (11.4-16.0); Lymphocytes % (A) 29 %; MCH 27.8 pg (25.0-35.0); MCHC 33.7 g/dL (31.0-37.0); MCV 82.6 fL (80.0-100.0); Mean Platelet Volume 7.6; Monocytes # (A) 0.2 k/uL (0-1.0); Monocytes % (A) 6 %; Neutrophils # (A) 2.2 k/uL (1.3-7.7); Neutrophils % (A) 60 %; Platelet Count 173 k/uL (150-450); RBC 5.32 m/uL (3.80-5.40); RDW 12.7 % (11.5-15.5); WBC 3.6 k/uL (3.8-10.6)
[2020-03-09 15:40] LABS: Partial Thromboplastin Time 25.3 sec (22.0-30.0); Prothrombin Time 10.4 sec (9.0-12.0)
[2020-03-09 15:43] LABS: ALT 20 U/L (4-34); AST 35 U/L (14-36); African American GFR (CKD) >90 (>60 ml/min/1.73 sqM); Albumin 4.2 g/dL (3.5-5.0); Alkaline Phosphatase 90 U/L (38-126); Anion Gap 12 mmol/L; Blood Urea Nitrogen 20 mg/dL (7-17); C Reactive Protein 11.5 mg/L (<10.0); Calcium 8.6 mg/dL (8.4-10.2); Carbon Dioxide 24 mmol/L (22-30); Chloride 100 mmol/L (98-107); Glucose 103 mg/dL (74-99); LDH 844 U/L (313-618); Non-African American GFR(CKD) 80 (>60 ml/min/1.73 sqM); Sodium 136 mmol/L (137-145); Total Bilirubin 0.9 mg/dL (0.2-1.3); Total Protein 6.9 g/dL (6.3-8.2)
[2020-03-09 15:45] LABS: D-Dimer 0.64 mg/L FEU (<0.60)
[2020-03-09 15:46] LABS: Potassium 4.1 mmol/L (3.5-5.1)
[2020-03-09 15:51] VITALS: PULSE 66
--- NOTE | 2020-03-09 15:51 | XR ---
EXAMINATION TYPE: XR chest 1V portable DATE OF EXAM: 03/09/2020 COMPARISON: 08/12/2016 INDICATION: Suspected Covid, short of breath TECHNIQUE: Single frontal view of the chest is obtained. FINDINGS: The heart size is normal. The pulmonary vasculature is normal. The lungs are clear. IMPRESSION: 1. No acute pulmonary process.
[2020-03-09 17:03] VITALS: BP 137/87
[2020-03-10 01:53] LABS: Ferritin 130.7 ng/mL (10.0-291.0)
== END 2020-03-09 17:36 | disposition home or self-care (01) ==
LOC: EC 14:22
DX: U07.1 COVID-19 (principal); D72.819 Decreased white blood cell count, unspecified; R74.02 Elevation of levels of lactic acid dehydrogenase [LDH]; R79.82 Elevated C-reactive protein (CRP); E07.9 Disorder of thyroid, unspecified; E78.5 Hyperlipidemia, unspecified; M19.049 Primary osteoarthritis, unspecified hand; I20.9 Angina pectoris, unspecified; Z79.82 Long term (current) use of aspirin; Z79.890 Hormone replacement therapy; Z79.899 Other long term (current) drug therapy; Z87.891 Personal history of nicotine dependence; Z85.850 Personal history of malignant neoplasm of thyroid
CPT/HCPCS: 36415; 71045; 80053; 82728; 83605; 83615; 83735; 84145; 85025; 85379; 85610; 85730; 86140; 87635; 93005; 96360; 99285

== ENCOUNTER → 2020-04-26 | Outpatient (CLI) | payer MEDICARE ==
[2020-04-26 10:38] LABS: African American GFR (CKD) >90 (>60 ml/min/1.73 sqM); Anion Gap 7 mmol/L; Blood Urea Nitrogen 18 mg/dL (7-17); Calcium 9.3 mg/dL (8.4-10.2); Carbon Dioxide 32 mmol/L (22-30); Chloride 101 mmol/L (98-107); Glucose 95 mg/dL (74-99); Non-African American GFR(CKD) 88 (>60 ml/min/1.73 sqM); Potassium 3.9 mmol/L (3.5-5.1); Sodium 140 mmol/L (137-145)
[2020-04-26 10:45] LABS: Basophils # (A) 0.1 k/uL (0-0.2); Basophils % (A) 2 %; Eosinophils # (A) 0.2 k/uL (0-0.7); Eosinophils % (A) 4 %; HCT 39.9 % (34.0-46.0); HGB 13.5 gm/dL (11.4-16.0); Lymphocytes # (A) 1.6 k/uL (1.0-4.8); Lymphocytes % (A) 29 %; MCH 28.5 pg (25.0-35.0); Mean Platelet Volume 7.1; Monocytes # (A) 0.3 k/uL (0-1.0); Monocytes % (A) 6 %; Neutrophils # (A) 3.1 k/uL (1.3-7.7); Neutrophils % (A) 58 %; Platelet Count 251 k/uL (150-450); RBC 4.74 m/uL (3.80-5.40); RDW 13.7 % (11.5-15.5); WBC 5.5 k/uL (3.8-10.6)
[2020-04-26 10:58] LABS: Appearance,Urine Cloudy (Clear); Bilirubin,Urine 1+ (Negative); Blood,Urine Negative (Negative); Color,Urine Yellow; Glucose,Urine (UA) Negative (Negative); Ketones,Urine Negative (Negative); Leukocyte Esterase,Urine Large (Negative); Mucus,Urine Many /hpf; Nitrite,Urine Negative (Negative); PH, Urine 5.5 (5.0-8.0); Protein,Urine 1+ (Negative); RBC,Urine 2 /hpf (0-5); Specific Gravity,Urine 1.031 (1.001-1.035); Squamous Epithelial Cell,Urine 2 /hpf (0-4); WBC,Urine 23 /hpf (0-5)
== END | disposition home or self-care (01) ==
LOC: LABPAT 09:55
PROVIDERS: ATTEND Urology
DX: Z01.818 Encounter for other preprocedural examination (principal); N20.1 Calculus of ureter; R31.0 Gross hematuria; R31.29 Other microscopic hematuria
CPT/HCPCS: 36415; 80048; 81001; 85025; 87086

== ENCOUNTER 2020-05-03 07:16 | Day surgery (SDC) | payer MEDICARE ==
[2020-04-29 14:56] VITALS: BMI 27.8
--- NOTE | 2020-05-02 16:40 | P.HPIHPCON ---
History of Present Illness Ms Masters is a 70 yo female with hx of hematuria and recurrent UTI. She underwent a CT which showed evidence of 4 mm left distal ureteral stone. She has not seen the stone pass. Discussed with her given her hematuria we can perform a cystoscopy with bilateral RP in the operating room. Discussed with her that if the stone is still present then will proceed with left sided ureteroscopy at the same time. Discussed the risk of bleeding, infection and injury to the ureter. She understood all risks and agreed to proceed with cystoscopy with bilateral reterograde pyelogram with possibile left sided ureteroscopy with holmium laser lithotripsy, stone basketting and and stent placement Consent for Procedure: I have explained the operation/procedure to the patient, including the risks, benefits, side effects, alternative therapies (including not receiving the proposed treatment or service), the likelihood of the patient achieving his/her goals, and potential recuperation problems for the procedure/sedation/analgesia, as well as any blood products, if indicated. I also explained to the patient the risks, benefits and side effects of the alternatives, as well as the risks related to not receiving the proposed procedure, care, treatment, or services. Past Medical History Past Medical History: Cancer, Chest Pain / Angina, Hyperlipidemia, Osteoarthritis (OA), Thyroid Disorder Additional Past Medical History / Comment(s): Thyroid cancer. KIDNEY STONE History of Any Multi-Drug Resistant Organisms: None Reported Past Surgical History: Breast Surgery, Hysterectomy, Orthopedic Surgery, Tonsillectomy Additional Past Surgical History / Comment(s): Thyroidectomy, RIGHT ANKLE SURGERY WITH PLATE AND SCREW , LT BREAST BIOPSY. right shoulder surgery Past Anesthesia/Blood Transfusion Reactions: Previous Problems w/ Anesthesia Additional Past Anesthesia/Blood Transfusion Reaction / Comment(s): WOKE DURING SURG,HAD PROBLEM WITH BREATHGING WITH BREAST BUT WENT HOME THE SAME DAY. Smoking Status: Former smoker - Past Family History Mother Family Medical History: Cancer Brother(s) Family Medical History: Cancer Medications and Allergies Home Medications Medication Instructions Recorded Confirmed Type Aspirin 81 mg PO DAILY 08/12/16 04/29/20 History Levothyroxine Sodium [Synthroid] 100 mcg PO DAILY 08/12/16 04/29/20 History Acetaminophen [Tylenol Extra 500 - 1,000 mg PO Q4-6H PRN 02/18/18 04/29/20 History Strength] Atorvastatin Calcium [Lipitor] 20 mg PO DAILY 02/24/20 04/29/20 History Ibuprofen [Motrin] 600 mg PO Q8HR PRN #20 tab 02/24/20 04/29/20 Rx Ergocalciferol [Vitamin D2 (1250 1,250 mcg PO BENSON 04/29/20 04/29/20 History Mcg = 49838 Iu)] Allergies Allergy/AdvReac Type Severity Reaction Status Date / Time sulfamethoxazole Allergy Abdominal Verified 04/29/20 13:09 [From Bactrim] Pain,NAUSEA,RASH trimethoprim [From Bactrim] Allergy Abdominal Verified 04/29/20 13:09 Pain,NAUSEA,RASH Surgical - Exam - General well developed, well nourished, no distress, no pain - Eyes PERRL, normal ocular movement - ENT normal nares, normal mucosa - Respiratory normal expansion, normal respiratory effort - Abdomen Abdomen: soft Assessment and Plan Assessment: OR for cystoscopy with bilateral reterograde pyelogram with possibile left sided ureteroscopy with holmium laser lithotripsy, stone basketting and and stent placement
[~2020-05-03 07:16] MED LIST changes: -DEXAMETHASONE SOD PHOSPHATE 10 MG/ML 1 ML VIAL IV ONE; +DEXAMETHASONE SOD PHOSPHATE 4 MG/ML 1 ML VIAL IV ONE; -EPINEPHrine (PF) 1 ML in SODIUM CHLORIDE 0.9% IRRIGATIO 3,000 ML IRRIGATION ONE; -KETAMINE 10 MG/ML 20 ML VIAL ONE; -LACTATED RINGERS 1,000 ML IV ONE; -LACTATED RINGERS 1,000 ML IV SCH; -LIDOCAINE 1% 20 ML VIAL (10MG/ML) FOR IV START INTRADERMA ONE; -LIDOCAINE 1% INJ 10MG/ML (20 ML MDV) ONE; -MIDAZOLAM 2 MG/2 ML VIAL IV ONE; -MIDAZOLAM 2 MG/2 ML VIAL ONE; -MORPHINE SULFATE 2 MG/ML SYRINGE IV PRN; -ONDANSETRON 4 MG/2 ML VIAL IVP ONE; -ONDANSETRON 4 MG/2 ML VIAL IVP PRN; -PHENYLEPHRINE-0.9% NACL SYG 1 MG/10 ML SYRINGE ONE; -PROPOFOL 10 MG/ML 20 ML VIAL IV ONE; -ROCURONIUM BROMIDE 10 MG/ML 10 ML VIAL IV ONE; -ROPIVACAINE 5 MG/ML 30 ML VIAL ONE; -ceFAZolin IN SWFI 2 GM/20 ML SYRINGE IVP ONE
[2020-05-03] MEDS: LACTATED RINGERS 1,000 ML IV SCH ×2 (08:03→11:42)
[2020-05-03] MEDS ORDERED: LIDOCAINE 1% (10MG/ML) FOR IV START INTRADERMA ONE (08:03)
[2020-05-03] MEDS ORDERED: ONDANSETRON 4 MG/2 ML VIAL ONE ×2 (08:06→11:31)
--- NOTE | 2020-05-03 08:35 | XR ---
EXAMINATION TYPE: XR KUB DATE OF EXAM: 05/03/2020 Comparison: CT 02/24/2020 Clinical History: 70-year-old female left-sided pain, R31.0 Findings: Tiny calcifications in the pelvis probably represent fibroids. Scattered [id number] stool and a ir throughout the colon. Nonobstructive bowel gas pattern. Impression: Tiny calcifications in the pelvis may represent phleboliths.
[2020-05-03] MEDS ORDERED: PROPOFOL 10 MG/ML 20 ML VIAL IV ONE (09:23)
[2020-05-03] MEDS ORDERED: fentaNYL (PF) 50 MCG/ML 2 ML AMP ONE (09:23)
[2020-05-03] MEDS ORDERED: ceFAZolin 1,000 MG VIAL ONE (09:23)
[2020-05-03] MEDS ORDERED: GLYCOPYRROLATE 0.2 MG/ML 2 ML VIAL ONE (09:23)
[2020-05-03] MEDS ORDERED: LIDOCAINE 1% INJ 10MG/ML (20 ML MDV) ONE (09:23)
[2020-05-03] MEDS ORDERED: NEOSTIGMINE 1 MG/ML 10 ML VIAL ONE (09:23)
[2020-05-03] MEDS ORDERED: SUCCINYLCHOLINE CHLORIDE 100 MG/5 ML SYR IV ONE (09:23)
[2020-05-03] MEDS ORDERED: ePHEDrine SULFATE/0.9% NACL/PF 50 MG/5 ML SYRINGE IV ONE (09:23)
[2020-05-03] MEDS ORDERED: ROCURONIUM 10 MG/ML (10 ML VIAL) IV ONE (09:23)
[2020-05-03] MEDS ORDERED: SODIUM CHLORIDE 0.9% 100 ML BAG ONE (09:23)
[2020-05-03] MEDS ORDERED: IOPAMIDOL-370 50ML BTL IRRIGATION ONE ×2 (09:44)
--- NOTE | 2020-05-03 10:05 | P.OP ---
Date of Procedure: 05/03/20 Preoperative Diagnosis: Gross hematuria, left ureteral calculi Postoperative Diagnosis: Gross hematuria Procedure(s) Performed: Cystoscopy, bilateral retrograde pyelogram, left ureteroscopy Implants: None Anesthesia: AMRIKA Surgeon: Roger Vivar Estimated Blood Loss (ml): 0 Pathology: none sent Condition: stable Disposition: PACU Indications for Procedure: Ms Masters is a 70 yo female with hx of hematuria and recurrent UTI. She underwent a CT which showed evidence of 4 mm left distal ureteral stone. She has not seen the stone pass. Discussed with her given her hematuria we can perform a cystoscopy with bilateral RP in the operating room. Discussed with her that if the stone is still present then will proceed with left sided ureteroscopy at the same time. Discussed the risk of bleeding, infection and injury to the ureter. She understood all risks and agreed to proceed with cystoscopy with bilateral reterograde pyelogram with possibile left sided ureteroscopy with holmium laser lithotripsy, stone basketting and and stent placement Operative Findings: Normal bilateral retrograde pyelogram, no stones seen on ureteroscopy Description of Procedure: Patient was brought to the operating room, general anesthesia was induced. She was prepped and draped in sterile fashion and placemed in dorsal lithotomy position. Cystoscopy fitted with 21-Irish sheath was advanced per urethra, cystoscopy was performed showed no abnormality within the bladder. Attention was then carried to the right ureteral orifice which was intubated with a 6- Irish open-ended catheter, retrograde pyelogram was performed which showed no filling defect or hydronephrosis. Attention was then carried to the left side, retrograde pyelogram was performed using the open-ended catheter which also showed no filling defect or hydronephrosis. At this time the catheter was removed and a semirigid ureteroscope was inserted, it was advanced up the left ureteral orifice and all the way up to the UPJ, no stones was visualized along the course a ureter. Pullback ureteroscopy was performed which showed no stones or injury to the ureter. The bladder was emptied at the end of the case. The patient was tolerated the procedure well and was taken to PACU in stable condition
[2020-05-03] MEDS ORDERED: ONDANSETRON 4 MG/2 ML VIAL IVP ONE (11:48)
--- NOTE | 2020-05-03 12:15 | FL ---
EXAMINATION TYPE: FL urography retrograde DATE OF EXAM: 05/03/2020 FLUOROSCOPY Fluoroscopy time of 45 seconds was used during bilateral urologic intervention. 2 image/s document/s the procedure.
[2020-05-03] MEDS ORDERED: MEPERIDINE 50 MG/ML SYRINGE IVP ONE (12:52)
[2020-05-03] MEDS ORDERED: BELLADONNA-OPIUM 16.2-60 MG 1 EACH SUPP RECTAL ONE (12:53)
[2020-05-03] MEDS ORDERED: Acetaminophen-Codeine 300-30mg TAB PO PRN (13:11)
[2020-05-03] MEDS ORDERED: BELLADONNA-OPIUM 16.2-60 MG 1 EACH SUPP RECTAL PRN (13:13)
[2020-05-03 14:41] VITALS: RESP 16
[2020-05-03] MEDS: D5-0.45% NACL WITH KCL 20MEQ/L 1,000 ML IV SCH (15:16)
[2020-05-03] MEDS: HEPARIN SODIUM,PORCINE 5,000 UNIT/ML 1 ML VIAL SQ SCH ×2 (15:28→23:52)
[2020-05-03] MEDS: KETOROLAC 15 MG/ML 1 ML VIAL IVP SCH ×2 (18:08→23:52)
[2020-05-03] MEDS: CEPHALEXIN 500 MG CAP PO SCH ×2 (18:08→23:51)
[2020-05-04] MEDS: KETOROLAC 15 MG/ML 1 ML VIAL IVP SCH (05:15)
[2020-05-04] MEDS: HEPARIN SODIUM,PORCINE 5,000 UNIT/ML 1 ML VIAL SQ SCH (07:41)
[2020-05-04] MEDS: CEPHALEXIN 500 MG CAP PO SCH (07:41)
[2020-05-04] MEDS: D5-0.45% NACL WITH KCL 20MEQ/L 1,000 ML IV SCH (07:44)
[2020-05-04 08:30] VITALS: BP 91/48; PULSE 78; TEMP 98
--- NOTE | 2020-05-04 09:08 | P.DS ---
Providers Expected date of discharge: 05/04/20 Attending physician: Roger Vivar MD Primary care physician: [facility] Course: Ms Masters is a 70 yo female with hx of hematuria and recurrent UTI. She underwent a CT which showed evidence of 4 mm left distal ureteral stone. She has not seen the stone pass. On the day of admission, she underwent cystoscopy, bilateral retrograde pyelograms, and left ureteroscopy. No abnormalities were seen. Postoperatively, she experienced significant bladder pain and gross hematuria. This resolved overnight, and she was comfortable the following morning. Her hematuria had resolved and she was otherwise doing well. Procedures: Cystoscopy, bilateral retrograde pyelograms, left ureteroscopy in 05/03/2020 Patient Condition at Discharge: Good Plan - Discharge Summary Discharge Rx Participant: No New Discharge Prescriptions: New Ibuprofen 600 mg PO Q8H PRN #21 tab PRN Reason: Pain Cephalexin [Keflex] 500 mg PO Q8HR #15 cap No Action Levothyroxine Sodium [Synthroid] 100 mcg PO DAILY Aspirin 81 mg PO DAILY Acetaminophen [Tylenol Extra Strength] 500 - 1,000 mg PO Q4-6H PRN PRN Reason: Pain Atorvastatin Calcium [Lipitor] 20 mg PO DAILY Ibuprofen [Motrin] 600 mg PO Q8HR PRN #20 tab PRN Reason: Pain Ergocalciferol [Vitamin D2 (1250 Mcg = 83542 Iu)] 1,250 mcg PO BENSON Discharge Medication List Aspirin 81 mg PO DAILY 08/12/16 [History] Levothyroxine Sodium [Synthroid] 100 mcg PO DAILY 08/12/16 [History] Acetaminophen [Tylenol Extra Strength] 500 - 1,000 mg PO Q4-6H PRN 02/18/18 [History] Atorvastatin Calcium [Lipitor] 20 mg PO DAILY 02/24/20 [History] Ibuprofen [Motrin] 600 mg PO Q8HR PRN #20 tab 02/24/20 [Rx] Ergocalciferol [Vitamin D2 (1250 Mcg = 80919 Iu)] 1,250 mcg PO BENSON 04/29/20 [History] Cephalexin [Keflex] 500 mg PO Q8HR #15 cap 05/03/20 [Rx] Ibuprofen 600 mg PO Q8H PRN #21 tab 05/03/20 [Rx] Patient Instructions/Handouts: *Surgery [facility] - (Anesthesia) Discharge Instructions Outpatient Surgery, Ureteroscopy (DC) Activity/Diet/Wound Care/Special Instructions: Increase fluid intake You may see some blood in the urine Keep previously scheduled appointment with Dr. Vivar Discharge Disposition: HOME SELF-CARE
== END 2020-05-04 10:07 | disposition home or self-care (01) ==
LOC: OR 07:16 → 6NMEDSUR 12:55 → OR 05-04 10:07
PROVIDERS: ATTEND Urology
DX: R31.0 Gross hematuria (principal); Z87.442 Personal history of urinary calculi; E78.5 Hyperlipidemia, unspecified; E89.0 Postprocedural hypothyroidism; M19.90 Unspecified osteoarthritis, unspecified site; Z87.440 Personal history of urinary (tract) infections; Z85.850 Personal history of malignant neoplasm of thyroid; Z87.891 Personal history of nicotine dependence; Z79.82 Long term (current) use of aspirin; Z79.890 Hormone replacement therapy; Z79.899 Other long term (current) drug therapy; Z88.2 Allergy status to sulfonamides; Z88.1 Allergy status to other antibiotic agents; Z90.710 Acquired absence of both cervix and uterus; Z90.89 Acquired absence of other organs; Z98.890 Other specified postprocedural states; Z80.9 Family history of malignant neoplasm, unspecified; Z53.09 Procedure and treatment not carried out because of other contraindication
CPT/HCPCS: 74420; 74018; 52351; C1758; J1644 ×2; J1100; J2175; J2405; J1885 ×2; Q9967

== ENCOUNTER → 2020-05-21 | Outpatient (CLI) | payer MEDICARE | END | disposition home or self-care (01) | LOC: LABWHC1 10:05 | PROVIDERS: ATTEND Internal Medicine Endocrinology, Diabetes & Metabolism | DX: C73 Malignant neoplasm of thyroid gland (principal) | CPT/HCPCS: 36415; 84432; 84443; 86800 ==

== ENCOUNTER → 2020-10-05 | Outpatient (CLI) | payer MEDICARE | END | disposition home or self-care (01) | LOC: LABWHC1 07:50 | PROVIDERS: ATTEND Internal Medicine Endocrinology, Diabetes & Metabolism | DX: C73 Malignant neoplasm of thyroid gland (principal) | CPT/HCPCS: 36415; 84432; 84443; 86800 ==

== ENCOUNTER → 2020-10-18 | Outpatient (CLI) | payer MEDICARE ==
--- NOTE | 2020-10-19 07:18 | US ---
EXAMINATION TYPE: US thyroid st tissue head/neck DATE OF EXAM: 10/18/2020 COMPARISON: US CLINICAL HISTORY: C73 MALIGNANT NEOPLASM OF THYROID GLAND. Malignant neoplasm of thyroid gland. Patie nt is on synthroid. Hx thyroidectomy about 41 years ago. GLAND SIZE: Right Lobe: Surgically absent. Left Lobe: Surgically absent. Isthmus Thickness: Surgically absent. No abnormalities seen at this time. Bilateral neck scanned, no evidence of lymphadenopathy. IMPRESSION: Total thyroidectomy without evidence for recurrent or residual mass. 2017 ACR TI-RADS LEVEL: *Highest TI-RADS level nodule reported
== END | disposition home or self-care (01) ==
LOC: RADUSWWP 16:52
PROVIDERS: ATTEND Internal Medicine Endocrinology, Diabetes & Metabolism
DX: E89.0 Postprocedural hypothyroidism (principal); Z85.850 Personal history of malignant neoplasm of thyroid
CPT/HCPCS: 76536

== ENCOUNTER → 2021-08-10 | Outpatient (CLI) | payer MEDICARE | END | disposition home or self-care (01) | LOC: LABWHC1 11:22 | PROVIDERS: ATTEND Internal Medicine Endocrinology, Diabetes & Metabolism | DX: C73 Malignant neoplasm of thyroid gland (principal) | CPT/HCPCS: 36415; 84432; 84443; 86800 ==

== ENCOUNTER → 2021-09-30 | Outpatient (CLI) | payer MEDICARE ==
--- NOTE | 2021-10-01 06:39 | BD ---
EXAMINATION TYPE: Axial Bone Density DATE OF EXAM: 09/30/2021 COMPARISON: NEW TO [facility]...[facility] CLINICAL HISTORY: 71 years year old Female. ICD-10 CODE: M81.0 age related osteoporosis Height: 62 Weight: 129 FRAX RISK QUESTIONS: History of Fracture in Adulthood: YES Secondary Osteoporosis: YES 3. Menopause before 45: YES, AT 33 RISK FACTORS HISTORY OF: HX OF RT TIB-FIB FRACTURE AN ADULT Postmenopausal woman: 33 YRS OLD TOTAL HYST Take estrogen and/or progesterone medications: YES, FOR ABOUT 17 YRS, NONE NOW Hyperparathyroidism: NO Adrenal Insufficiency: NO MEDICATIONS: Thyroid Medications: YES, FOR ABOUT 43 YRS Additional Medications: CHOLESTEROL MEDS, VIT D, AND THYROID MEDS Additional History: ANEMIC, CHOLESTEROL, THYROID EXAM MEASUREMENTS: Bone mineral densitometry was performed using the [employer] System. Bone mineral density as measured about the Lumbar spine is: ----- L1-L4(G/cm2): 1.438 T Score Values are as follows: ----- L1: 0.8 ----- L2: 1.6 ----- L3: 3.4 ----- L4: 2.9 ----- L1-L4: 2.1 Bone mineral density NEW TO [facility] Bone mineral density about the R hip (g/cm2): 1.005 Bone mineral density about the L hip (g/cm2): 1.051 T Score values are as follows: -----R Neck: -0.5 -----L Neck: -0.2 -----R Total: 0.0 -----L Total: 0.3 Bone mineral density NEW TO [facility] FRAX%s: The graph provided illustrates a 12.7% chance for a major osteoporotic fx and a 1.2% chance f or the hips probability for fx in 10 years time. IMPRESSION: Normal (Values between +1 and -1 indicate normal bone mass). Consider repeating this study in 5 year s or sooner if there is some new clinical indication. NOTE: T-SCORE=SD OF THE YOUNG ADULT MEAN.
--- NOTE | 2021-10-03 09:00 | MM ---
Reason for Exam: Screening (asymptomatic). Last mammogram was performed 1 year(s) and 1 month(s) ago. Patient History: Menarche at age 10. First Full-Term at age 18. Hysterectomy at age 33. Postmenopausal. Patient used Estrogen for 15 years. MG stereo VAD BX LT - 2 on the Left side. Risk Values: Monique 5 year model risk: 1.9%. NCI Lifetime model risk: 4.6%. Tissue Density: There are scattered fibroglandular densities. Findings: Analyzed By CAD. Benign appearing vascular calcification in both breasts is redemonstrated. Occasional scattered benign-appearing round calcifications bilaterally are again seen. Benign-appearing dystrophic calcification left breast is redemonstrated. There is no suspicious group of microcalcifications or new suspicious mass in either breast. Overall Assessment: Benign, BI-RAD 2 Management: Screening Mammogram of both breasts in 1 year. A clinical breast exam by your physician is recommended on an annual basis and results should be correlated with mammographic findings. Electronically signed and approved by: Miguel Reynolds M.D.
== END | disposition home or self-care (01) ==
LOC: RADMAMWWP 12:59
PROVIDERS: ATTEND Internal Medicine Geriatric Medicine
DX: Z12.31 Encounter for screening mammogram for malignant neoplasm of breast (principal); Z78.0 Asymptomatic menopausal state
CPT/HCPCS: 77063; 77067; 77080

== ENCOUNTER → 2022-10-24 | Outpatient (CLI) | payer MEDICARE ==
--- NOTE | 2022-10-25 19:15 | MM ---
Reason for Exam: Screening (asymptomatic). Last mammogram was performed 1 year(s) and 1 month(s) ago. Patient History: Menarche at age 10. First Full-Term at age 18. Left ovary removed at age 33. Right ovary removed at age 33. Hysterectomy at age 33. Postmenopausal. Patient used Estrogen for 15 years. MG stereo VAD BX LT - 2 on the Left side. Risk Values: Monique 5 year model risk: 1.9%. NCI Lifetime model risk: 4.3%. Prior Study Comparison: 09/08/2019 Bilateral MG screening mammo w CAD - 2, [facility]. 09/09/2020 Bilateral MG screening mammo w CAD - 2, [facility]. 09/30/2021 Bilateral MG 3D screening mammo w/cad, [facility]. Tissue Density: There are scattered fibroglandular densities. Findings: Analyzed By CAD. Pattern appears symmetrical and stable. Benign vascular and scattered benign punctate calcifications are present bilaterally. No suspicious groups of microcalcifications, spiculated or lobular masses, architectural distortion or other secondary signs of malignancy are mammographically apparent.Pattern appears symmetrical and stable. Benign vascular and scattered benign punctate calcifications are present bilaterally. Stable benign nodule in the posterior right mediolateral oblique view was present previously likely is a lymph node. No suspicious groups of microcalcifications, spiculated or lobular masses, architectural distortion or other secondary signs of malignancy are mammographically apparent. Overall Assessment: Benign, BI-RAD 2 Management: Screening Mammogram of both breasts in 1 year. A negative mammogram report should not preclude additional follow up of suspicious palpable abnormalities. Patient should continue monthly self breast exam. A clinical breast exam by your physician is recommended on an annual basis and results should be correlated with mammographic findings. Electronically signed and approved by: Chris Mendosa D.O. Radiologis
== END | disposition home or self-care (01) ==
LOC: RADMAMWWP 09:32
PROVIDERS: ATTEND Internal Medicine Geriatric Medicine
DX: Z12.31 Encounter for screening mammogram for malignant neoplasm of breast (principal); Z78.0 Asymptomatic menopausal state
CPT/HCPCS: 77063; 77067

== ENCOUNTER → 2022-11-22 | Outpatient (CLI) | payer MEDICARE | END | disposition home or self-care (01) | LOC: LABWHC1 11:16 | PROVIDERS: ATTEND Internal Medicine Endocrinology, Diabetes & Metabolism | DX: E89.0 Postprocedural hypothyroidism (principal) | CPT/HCPCS: 36415; 84443 ==

== ENCOUNTER → 2023-06-25 | Outpatient (CLI) | payer MEDICARE | END | disposition home or self-care (01) | LOC: LABWHC1 09:03 | PROVIDERS: ATTEND Internal Medicine Endocrinology, Diabetes & Metabolism | DX: C73 Malignant neoplasm of thyroid gland (principal) | CPT/HCPCS: 36415; 84432; 84443; 86800 ==

== ENCOUNTER → 2023-09-24 | Outpatient (CLI) | payer MEDICARE ==
[2023-09-24 14:26] LABS: African American GFR (CKD) >90 (>60 ml/min/1.73 sqM); Blood Urea Nitrogen 21 mg/dL (7-17); Non-African American GFR(CKD) 89 (>60 ml/min/1.73 sqM)
--- NOTE | 2023-09-24 20:51 | CT ---
EXAMINATION TYPE: CT ChestAbdPelvis w con DATE OF EXAM: 09/24/2023 COMPARISON: CT abdomen and pelvis dated 02/24/2020 HISTORY: GERD, thyroid ca CT DLP: 507.4 mGycm Automated exposure control for dose reduction was used. CONTRAST: CT scan of the chest, abdomen and pelvis is performed with Oral Contrast and with IV Contrast, patien t injected with 100 mL of Isovue 300. FINDINGS: CT chest: There are 2 well-circumscribed nodules measuring approximately 4.5 to 5 mm in size. There is a micron odule in the left upper lobe. There is no abnormal airspace/consolidative density or abnormal interstitial density. There is no pleural effusion, pleural thickening or pneumothorax. The great vessels and chest are normal there is no mediastinal, hilar or axillary adenopathy. No focal osseous lesions are seen. CT abdomen and pelvis: Gallbladder is normal without distention, pericholecystic fluid, wall thickening or gallstone. There is no biliary ductal dilatation. There is no focal mass or organomegaly involving the liver, pancreas, spleen or adrenal glands.. Ther e are multiple stable hepatic cysts scattered throughout the liver. There is no solid renal mass or hydronephrosis. There is no retroperitoneal adenopathy or hemorrhage in the caliber of the abdominal aorta is normal. The bowel loops are normal in caliber and there is no dilatation or obstruction. No inflammatory sethi ges identified in the bowel wall and mesentery. There is no free intracranial air or fluid. There is no pelvic mass or adenopathy. There is no free fluid within the pelvis. There are surgical a bsence of uterus. No focal osseous lesions are seen. Soft tissue the abdomen and pelvis are normal. IMPRESSION: 1. 2 sub-5 mm right lower lobe pulmonary nodules. Statistically these are most likely benign. Given t he history of thyroid cancer and no prior study for comparison, short-term follow-up CT thorax in 4-6 months is recommended to confirm stability. 2. No evidence of metastatic disease within the abdomen or pelvis.
== END | disposition home or self-care (01) ==
LOC: RADCTMAIN 13:45
PROVIDERS: ATTEND Internal Medicine Geriatric Medicine
DX: K21.9 Gastro-esophageal reflux disease without esophagitis (principal); R91.8 Other nonspecific abnormal finding of lung field
CPT/HCPCS: 82565; 84520; 71260; 74177; 36415; Q9967

== ENCOUNTER → 2023-10-26 | Outpatient (CLI) | payer MEDICARE ==
--- NOTE | 2023-10-26 11:37 | BD ---
EXAMINATION TYPE: Axial Bone Density DATE OF EXAM: 10/26/2023 CLINICAL HISTORY: 73 years old Female. ICD-10 CODE: Z78.0 ASYMP ANJELICA STA Height: 62.5 Weight: 117.7 FRAX RISK QUESTIONS: Alcohol (3 or more units per day): no Family History (Parent hip fracture): no Glucocorticoids (More than 3mos): no (Ex: prednisone, prednisolone, methylprednisolone, dexamethasone, and hydrocortisone). History of Fracture in Adulthood: ankle Secondary Osteoporosis: 1. Type 1 Diabetes: no 2. Hyperthyroidism: no 3. Menopause before 45: yes 4. Malnutrition: no 5. Chronic liver disease: no Rheumatoid Arthritis: no Current Tobacco Use: no RISK FACTORS HISTORY OF: Hip Fracture (Right/Left): no Spine Fracture: no History of Wrist Fracture: Surgery to Spine/Hip(right/left)/Wrist (right/left): no MEDICATIONS: Thyroid Medications: Synthroid How Long: past 45 years Osteoporosis Medications: no EXAM MEASUREMENTS: Bone mineral densitometry was performed using the [employer] System. Bone mineral density as measured about the Lumbar spine is: ----- L1-L4(G/cm2): 1.410 T Score Values are as follows: ----- L1: 1.4 ----- L2: 1.5 ----- L3: 2.9 ----- L4: 1.7 ----- L1-L4: 1.9 Z Score Values are as follows: ----- L1: 3.5 ----- L2: 3.7 ----- L3: 5.0 ----- L4: 3.9 ----- L1-L4: 4.1 Bone mineral density has: decreased -1.9 % since study of: 09/30/2021 Bone mineral density about the R hip (g/cm2): 0.976 Bone mineral density about the L hip (g/cm2): 0.995 T Score values are as follows: -----R Neck: -0.8 -----L Neck: -0.4 -----R Total: -0.3 -----L Total: -0.1 Z Score values are as follows: -----R Neck: 1.4 -----L Neck: 1.8 -----R Total: 1.8 -----L Total: 1.9 Bone mineral density has: decreased -4.1 % since study of: 09/30/2021 FRAX%s: The graph provided illustrates a 13.0 % chance for a major osteoporotic fx and a 1.8% chance for the hips probability for fx in 10 years time. IMPRESSION: Normal (Values between +1 and -1 indicate normal bone mass). Consider repeating this study in 5 year s or sooner if there is some new clinical indication. NOTE: T-SCORE=SD OF THE YOUNG ADULT MEAN.
--- NOTE | 2023-11-21 12:23 | MM ---
Reason for Exam: Screening (asymptomatic). Last screening mammogram was performed 12 month(s) ago. Patient History: Menarche at age 10. First Full-Term at age 18. Left ovary removed at age 33. Right ovary removed at age 33. Hysterectomy at age 33. Postmenopausal. Patient used Estrogen for 15 years. MG stereo VAD BX LT - 2 on the Left side. Risk Values: Monique 5 year model risk: 1.9%. NCI Lifetime model risk: 4.0%. Prior Study Comparison: 09/09/2020 Bilateral MG screening mammo w CAD - 2, [facility]. 09/30/2021 Bilateral MG 3D screening mammo w/cad, [facility]. 10/24/2022 Bilateral MG 3D screening mammo w/cad, [facility]. Tissue Density: There are scattered areas of fibroglandular density. Findings: Analyzed By CAD. Right breast: There is no suspicious group of microcalcifications or new suspicious mass. Benign-appearing calcifications right breast. Left breast: There is no suspicious group of microcalcifications or new suspicious mass. Benign-appearing calcifications left breast. Overall Assessment: Benign, BI-RAD 2 Management: Screening Mammogram of both breasts in [address] [facility] will attempt to contact patient to return for supplemental views and ultrasound if indicated. Patient should continue monthly self-breast exams. A clinical breast exam by your physician is recommended on an annual basis. This exam should not preclude additional follow-up of suspicious palpable abnormalities. Note on Monique scores and lifetime risk: 1. A Monique score greater than 3% is considered moderate risk. If this is the case, consider specialist referral to assess eligibility for a risk reducing agent. 2. If overall lifetime risk for the development of breast cancer is 20% or higher, the patient may qualify for future screening with alternating mammogram and breast MRI. Electronically signed and approved by: Romero Frias DO
== END | disposition home or self-care (01) ==
LOC: RADMAMWWP 09:18
PROVIDERS: ATTEND Internal Medicine Geriatric Medicine
DX: Z12.31 Encounter for screening mammogram for malignant neoplasm of breast (principal); Z78.0 Asymptomatic menopausal state; Z90.721 Acquired absence of ovaries, unilateral
CPT/HCPCS: 77063; 77067; 77080

== ENCOUNTER → 2024-07-23 | Outpatient (CLI) | payer MEDICARE ==
--- NOTE | 2024-07-23 13:11 | US ---
EXAMINATION TYPE: US thyroid st tissue head/neck DATE OF EXAM: 07/23/2024 COMPARISON: 10/18/2020 CLINICAL INDICATION: Female, 74 years old with history of C73 MALIGNANT OF THYROID GLAND; h/o thyroid ectomy 40 years ago, no symptoms or issues currently TECHNIQUE: Grayscale and color Doppler imaging of the thyroid gland. FINDINGS: GLAND SIZE: Right Lobe: Surgically absent Left Lobe: Surgically absent Isthmus Thickness: Surgically absent Quality Tester notes: No residual tissue seen on bilateral neck soft tissue scan IMPRESSION: No suspicious nodule or residual tissue identified within the thyroidectomy bed. [facility] Zoya Aguilar, Workstation: [employer] RunnerJOSY, 07/23/2024 1:08 PM
== END | disposition home or self-care (01) ==
LOC: RADUSWWP 10:14
PROVIDERS: ATTEND Internal Medicine Endocrinology, Diabetes & Metabolism
DX: C73 Malignant neoplasm of thyroid gland (principal)
CPT/HCPCS: 76536

== ENCOUNTER → 2024-07-23 | Outpatient (CLI) | payer MEDICARE | END | disposition home or self-care (01) | LOC: LABWHC1 10:08 | PROVIDERS: ATTEND Internal Medicine Endocrinology, Diabetes & Metabolism | DX: C73 Malignant neoplasm of thyroid gland (principal) | CPT/HCPCS: 36415; 84432; 84443; 86800 ==